=== PATIENT | female | born 1960 | race Caucasian/White ===

== ENCOUNTER 2016-09-19 08:41 | Inpatient (IN) | payer BC, OTHER ==
[2016-08-10 11:32] VITALS: BMI 47.0
--- NOTE | 2016-08-10 12:04 | PAT Medication Instructions ---
Service Date August 10, 2016. Current Home Medication List Bupropion (Wellbutrin Sr), 150 MG PO BID Citalopram Hydrobromide (Citalopram Hydrobromide), 1 TAB PO QAM Furosemide (Lasix), 40 MG PO QAM Lisinopril (Zestril), 40 MG PO QAM Lorazepam (Ativan), 0.5 MG PO HS Omeprazole (Prilosec), 20 MG PO QAM Warfarin Sod (Jantoven), 6 MG PO M,T,W,FRI,SAT Warfarin Sod (Jantoven), 3 MG PO THUR AND SUN [melox/ayesha/lido], for ARTHRITIS LEFT FOOT Medication Instructions For Your Scheduled Surgery - Hold the following medications per Coumadin clinic instructions: Warfarin Sod (Jantoven), 6 MG PO M,T,W,FRI,SAT Warfarin Sod (Jantoven), 3 MG PO THUR AND SUN per pt, to bridge with Lovenox - Hold the following medications 24 hours prior to surgery: [melox/ayesha/lido], for ARTHRITIS LEFT FOOT - Hold the following medications the morning of surgery: Furosemide (Lasix), 40 MG PO QAM Lisinopril (Zestril), 40 MG PO QAM - Take the following medications the morning of surgery with a sip of water OTHERWISE NOTHING TO EAT OR DRINK AFTER MIDNIGHT: Omeprazole (Prilosec), 20 MG PO QAM Bupropion (Wellbutrin Sr), 150 MG PO BID Citalopram Hydrobromide (Citalopram Hydrobromide), 1 TAB PO QAM - Take the following medications as scheduled the night before surgery: Lorazepam (Ativan), 0.5 MG PO HS Bupropion (Wellbutrin Sr), 150 MG PO BID If you have any questions please call us at [phone] or [phone] or [phone]
--- NOTE | 2016-08-10 12:48 | DIAGNOSTIC IMAGING REPORT ---
CHEST 2 VIEWS ROUTINE CLINICAL HISTORY: Preoperative evaluation. COMPARISON STUDY: No previous studies for comparison. FINDINGS: A gastric lap band is noted. Left basilar opacity suggests atelectasis. There is no evidence of pulmonary edema. Cardiac size is at the upper limits of normal. Pulmonary vascularity is normal. IMPRESSION: 1. No acute cardiopulmonary findings. 2. Top normal cardiac size. 3. Left basilar opacity suggestive of atelectasis. Electronically signed by: Pola Hare M.D. 08/10/2016 12:47 PM Dictated Date/Time: 08/10/2016 12:42 PM
[2016-08-10 13:30] LABS: BUN/CREATININE RATIO 19.7 (10-20); CALCIUM 8.7 mg/dl (8.5-10.1); POTASSIUM 4.2 mmol/L (3.5-5.1)
[2016-08-10 13:31] LABS: BASO % 0.3 %; BASO ABS # 0.02 K/uL (0-0.2); COMPLETE YES; EOS % 2.9 %; HEMATOCRIT 39.2 % (37-47); IG% 0.3 %; LYMPH % 24.5 %; LYMPH ABS # 1.51 K/uL (1.2-3.4); MEAN CELL VOLUME 86.2 fL (80-100); MEAN CORPUSCULAR HEMOGLOBIN 28.1 pg (25-34); MEAN CORPUSCULAR HGB CONC 32.7 g/dl (32-36); MEAN PLATELET VOLUME 9.8 fL (7.4-10.4); MONO % 6.3 %; NEUT % 65.7 %; PLATELET COUNT 285 K/uL (130-400); RED BLOOD COUNT 4.55 M/uL (4.2-5.4); WHITE BLOOD COUNT 6.17 K/uL (4.8-10.8)
[2016-08-10 14:07] LABS: INR 2.4 (0.9-1.1); PARTIAL THROMBOPLASTIN RATIO 1.9; PROTHROMBIN TIME (PATIENT) 26.9 SECONDS (9.0-12.0)
[2016-08-10 14:08] LABS: URINE APPEARANCE CLEAR (CLEAR); URINE BILIRUBIN NEG (NEG); URINE COLOR DK YELLOW; URINE EPITHELIAL CELL AUTO >30 /lpf (0-5); URINE NITRITE NEG (NEG); URINE SPECIFIC GRAVITY 1.024 (1.000-1.030); UROBILINOGEN NEG (NEG); ZZUR CULT IF INDIC CLEAN CATCH YES
[2016-08-10 14:14] LABS: MANUAL MICROSCOPIC REQUIRED? NO; REVIEW REQ? NO
[2016-08-10 14:33] LABS: ESTIMATED AVERAGE GLUCOSE 111 mg/dl; HA1C FLAG Normal (Normal)
--- NOTE | 2016-09-18 20:22 | HISTORY & PHYSICAL EXAMINATION ---
DATE OF ADMISSION: 09/19/2016 CHIEF COMPLAINT: Chronic left knee pain. HISTORY OF PRESENT ILLNESS: This is a 56-year-old female patient of Dr. Hamlin who is complaining of chronic left knee pain, longstanding, now progressively getting worse. The patient has been diagnosed with end-stage osteoarthritis per clinical and radiographic exams. The patient has failed conservative treatment including, physical therapy, anti-inflammatories, intra-articular injections and the use of a cane, walker and Hieu wrap. The patient has increased pain with weightbearing activities and her pain does interfere with her activities of daily living. PAST MEDICAL HISTORY: Hypertension, pulmonary embolism, sleep apnea with the use of CPAP, anxiety, carpal tunnel syndrome, obesity. SOCIAL HISTORY: Nonsmoker, nondrinker. PAST SURGICAL HISTORY: Shoulder surgery and lap band abdominal surgery. REVIEW OF SYSTEMS: The patient complains of chronic left knee pain, otherwise denies any shortness of breath, chest pain, nausea, vomiting or joint complaints. FAMILY HISTORY: Noncontributory. MEDICATIONS: Lisinopril 40 mg daily, lorazepam 0.5 mg b.i.d. p.r.n., omeprazole 20 mg daily, bupropion 150 mg b.i.d., Celexa 20 mg daily, Coumadin 6 mg as directed by Coumadin clinic, Lasix 40 mg daily, transdermal pain base to affected area as needed daily. ALLERGIES: No known drug allergies. PHYSICAL EXAMINATION: GENERAL: Well-developed, well-nourished 56-year-old female patient. She is in no acute distress. She is alert and oriented x3 and pleasant. HEENT: Normocephalic, atraumatic. Extraocular motions are intact. Pupils are equal and reactive to light. HEART: Regular rate and rhythm, no murmurs appreciated. LUNGS: Clear. ABDOMEN: Soft, nontender, bowel sounds present. EXTREMITIES: Left knee reveals medial joint line tenderness with limited range of motion of 0-120 degrees. She has a mild effusion. She has a varus deformity, 5/5 strength. NEUROLOGIC: Neurovascularly, she is intact in her left lower extremity. DIAGNOSES: Left knee end-stage osteoarthritis with a history of hypertension, pulmonary embolism, sleep apnea with the use of CPAP, anxiety, carpal tunnel syndrome, obesity. PLAN: The patient was advised of her diagnosis. Indications, risks, benefits, and postop course have all been reviewed. The patient wishes to proceed with left total knee arthroplasty. Necessary consent forms, preoperative testing and clearances will be obtained.
[~2016-09-19] VITALS: Ht 160 cm; Wt 122.1 kg
[2016-09-19] VITALS (8 sets, daily range): BP systolic 106–154; BP diastolic 66–81; PULSE 74–83; TEMP 36.5–37.4; O2SAT 94–99; Ht 160 cm; Wt 122.1 kg
[~2016-09-19 08:41] MED LIST: ACETAMINOPHEN 500 MG TAB PO SCH; BUPIVACAINE 0.5 % 5 MG/1 ML PF 10ML VIAL ONE; BUPR-79 PO; CEFAZOLIN 3000 MG/65 ML D5W 65 ML IV SCH; CITA20TA4 PO; DEXAMETHASONE 4 MG TAB PO SCH; FAMOTIDINE 20 MG TAB PO SCH; FRS/40 PO; GABA; GABAPENTIN 300 MG CAP PO SCH; LACTATED RINGER'S 1000ML 1,000 ML IV SCH; LACTATED RINGER'S 1000ML IV SCH; LACTATED RINGER'S 500 ML IV SCH; LIDO; LISI40TA PO; LORA-741 PO; MELOX; METOCLOPRAMIDE HCL 10 MG TAB PO SCH; PRLSR20 PO; ROPIVACAINE 0.5% 5 MG/ML 30 ML VIAL ONE; ROPIVACAINE 5MG/ML 30 ML 150 MG, BUPIVACAINE/EPINEPHR 0.5% MPF 30 ML, KETOROLAC TROMETH... INFIL SCH; WARF3TAB6 PO; WARF6TAB5 PO
[2016-09-19] MEDS ORDERED: PROPOFOL IV EMULSION 10 MG/ML 20 ML VIAL IV ONE (08:43)
[2016-09-19] MEDS ORDERED: LIDOCAINE HCL 2% 2 ML VIAL (20MG/ML) ONE (08:43)
[2016-09-19] MEDS ORDERED: MIDAZOLAM HCL 1 MG/ML 2ML VIAL ONE ×2 (08:44→08:45)
[2016-09-19] MEDS ORDERED: ENOX60IN SQ (09:06)
--- NOTE | 2016-09-19 09:38 | History & Physical Bridge Note ---
H&P Re-Evaluation Bridge Note: I have examined the patient, reviewed the History & Physical and in the interval since the performance of the History & Physical I have noted the following changes of clinical significance: No changes noted
[2016-09-19] MEDS ORDERED: BACITRACIN 50000 UNIT VIAL ONE (09:54)
[2016-09-19] MEDS ORDERED: POVIDONE-IODINE OP SOLN 30 ML BTL ONE (09:54)
[2016-09-19] MEDS ORDERED: ORTHO JOINT ANESTHETIC ONE (09:54)
[2016-09-19 09:57] LABS: INR 0.9 (0.9-1.1); PARTIAL THROMBOPLASTIN RATIO 1.2
[2016-09-19] MEDS ORDERED: PHENYLEPHRINE HCL INJ 10 MG/ML VIAL ONE (11:00)
[2016-09-19] MEDS ORDERED: ONDANSETRON INJ 2 MG/ML 2 ML VIAL IV PRN ×2 (11:15→13:15)
[2016-09-19] MEDS ORDERED: EpHEDrine SULFATE INJ 50 MG/ML AMP IV PRN (11:15)
[2016-09-19] MEDS ORDERED: HYDROmorphone INJ 2 MG/ML SYR/VIAL IV PRN (11:15)
[2016-09-19] MEDS ORDERED: ATROPINE SULFATE 0.1 MG/ML 5ML SYR IV PRN (11:15)
[2016-09-19] MEDS ORDERED: PHENYLEPHRINE 100MCG/ML 5ML SYR IV PRN (11:15)
--- NOTE | 2016-09-19 12:41 | [facility] Operative Report ---
Operative Report Operative Date Sep 19, 2016. Pre-Operative Diagnosis Left Knee Degenerative Joint Disease,morbid obesity bmi 47.7 Post-Operative Diagnosis same Procedure(s) Performed Left total knee replacement Surgeon Dr. Andersen Baggage Security Checker Surgeon(s) Deuce Dumont PA-C Estimated Blood Loss 5 ML Findings tricompartmental djd oa varus grade 4 medial Specimens A. Left Knee Bone and Tissue Drains 2 hemovac Anesthesia spinal regioanal and orthomix Complication(s) None Disposition Recovery Room / PACU Indications end stage bilateral knee djd oa left > right I attest to the content of the Intraoperative Record and any orders documented therein. Any exceptions are noted below.
[2016-09-19] MEDS ORDERED: SOD PHOSPHATE/SOD BIPHOSPHATE ENEMA 132 ML BTL PR PRN (13:15)
[2016-09-19] MEDS ORDERED: METOCLOPRAMIDE HCL INJ 5 MG/ML 2 ML VIAL IV PRN (13:15)
[2016-09-19] MEDS ORDERED: BISACODYL 10 MG SUPP PR PRN (13:15)
[2016-09-19] MEDS ORDERED: ZOLPIDEM TARTRATE 5 MG TAB PO PRN (13:15)
[2016-09-19] MEDS ORDERED: MAGNESIUM HYDROXIDE SUSP 30 ML UDC PO PRN (13:15)
[2016-09-19] MEDS ORDERED: MoRPHine SULFATE 2 MG/ML CARP IV PRN (13:15)
[2016-09-19] MEDS ORDERED: TRAMADOL HCL 50 MG TAB PO PRN (13:15)
--- NOTE | 2016-09-19 13:52 | Anesthesiology Progress Note ---
Anesthesia Post Op Note Date & Time Sep 19, 2016 at 13:52 Vital Signs Pain Intensity: 0 Vital Signs Past 12 Hours Date Time Temp Pulse Resp B/P (MAP) Pulse Ox O2 Delivery O2 Flow Rate FiO2 09/19/16 13:29 75 17 09/19/16 13:29 77 17 94 09/19/16 13:29 77 17 94 09/19/16 13:29 75 17 09/19/16 13:26 115/64 09/19/16 13:26 115/64 09/19/16 13:24 77 19 95 09/19/16 13:24 76 19 09/19/16 13:24 76 19 09/19/16 13:24 77 19 95 09/19/16 13:21 130/66 09/19/16 13:21 130/66 09/19/16 13:19 78 20 09/19/16 13:19 79 20 93 09/19/16 13:19 79 20 93 09/19/16 13:19 78 20 09/19/16 13:16 120/70 09/19/16 13:16 120/70 09/19/16 13:14 79 22 09/19/16 13:14 79 22 97 09/19/16 13:14 79 22 97 09/19/16 13:14 79 22 09/19/16 13:11 126/71 09/19/16 13:11 126/71 09/19/16 13:10 123/63 09/19/16 13:10 123/63 09/19/16 13:09 83 20 09/19/16 13:09 83 20 09/19/16 13:09 36.4 20 18 123/63 97 Room Air 09/19/16 13:09 83 20 97 09/19/16 13:09 83 20 97 09/19/16 09:08 36.7 83 20 130/66 94 Room Air Notes Mental Status: alert / awake / arousable, participated in evaluation Pt Amnestic to Procedure: Yes Nausea / Vomiting: adequately controlled Pain: adequately controlled Airway Patency, RR, SpO2: stable & adequate BP & HR: stable & adequate Hydration State: stable & adequate Anesthetic Complications: no major complications apparent
--- NOTE | 2016-09-19 13:59 | DIAGNOSTIC IMAGING REPORT ---
LEFT KNEE 2 VIEWS History: Left total knee arthroplasty. Degenerative arthritis. Postop. FINDINGS: The patient is status post a left total knee arthroplasty. The hardware is intact. No fracture or dislocation. Skin mikey and surgical drains are in place. IMPRESSION: Left total knee arthroplasty. No evidence for hardware complication. Electronically signed by: Raúl Lambert M.D. 09/19/2016 1:58 PM Dictated Date/Time: 09/19/2016 1:57 PM
[2016-09-19] MEDS ORDERED: MoRPHine SULFATE 4 MG/ML 1 ML CARP\\VIAL IV PRN (15:00)
[2016-09-19] MEDS ORDERED: WARFARIN SOD 6 MG TAB PO SCH (16:00)
[2016-09-19] MEDS: D5W AND 1/2NSS + 20MEQ KCL 1,000 ML IV SCH (16:17)
[2016-09-19] MEDS: ACETAMINOPHEN 500 MG TAB PO SCH ×2 (16:21→21:23)
--- NOTE | 2016-09-19 16:48 | INTERNAL MEDICINE CONSULTATION ---
DATE OF CONSULTATION: 09/19/2016 CHIEF COMPLAINT: Status post left total knee arthroplasty. HISTORY OF PRESENT ILLNESS: This is a 56-year-old female with past medical history significant for obesity, HAQUE, hypertension, DVT, pulmonary embolism, depression, generalized anxiety disorder status post left total knee arthroplasty tolerated the procedure okay. Denies any chest pain, no shortness of breath, no cough, no headaches, no blurred vision, no nausea, no abdominal pain, feeling some hot but no cold, moving her extremities. Currently, resting comfortably. ALLERGIES: No known drug allergies. PAST MEDICAL HISTORY: As mentioned above. PAST SURGICAL HISTORY: Knee arthroscopy and debridement right side, laparoscopic gastric banding, and also bypass, shoulder arthroscopy and debridement, shoulder tenomyotomy. MEDICATIONS: The patient is on Lovenox bridging, lisinopril 40 mg daily, bupropion extended release 150 mg p.o. b.i.d., Coumadin as directed, Ativan 0.5 mg p.o. b.i.d. p.r.n., Celexa 20 mg p.o. daily, Prilosec 20 mg p.o. daily, Lasix 40 mg p.o. daily. FAMILY HISTORY: Significant for father had rheumatoid arthritis, diabetes, CHF, NC, hypertension and obesity. Mother has lymphedema, mental depression, lung disorder and lung cancer. SOCIAL HISTORY: Never smoked. Alcohol occasional. No drug use. Single. REVIEW OF SYSTEMS: As per HPI, rest of review of systems negative. PHYSICAL EXAMINATION: GENERAL: The patient is obese, not in distress. VITAL SIGNS: Temperature 36.6, pulse 79, respiratory rate 18, blood pressure 146/78, oxygen 97% on 2 liters. HEENT: No pallor. NECK: No JVD, no neck masses. CARDIOVASCULAR: S1, S2 heard, regular rate and rhythm, no murmur, no gallop. RESPIRATORY SYSTEM: Normal AP diameter. No accessory muscle use. No wheezing, no crackles. ABDOMEN: Soft, bowel sounds present. Nontender. No distention. CENTRAL NERVOUS SYSTEM: Nonfocal. EXTREMITIES: Status post left total knee arthroplasty in dressing, moves extremities. LABS: Unavailable. ASSESSMENT AND PLAN: This is a 56-year-old female status post left total knee arthroplasty. 1. Total knee arthroplasty. Further management as per orthopedics. Pain control, PT, OT as per orthopedics. 2. History of deep venous thrombosis and pulmonary embolism on Coumadin at home, which are held and on Lovenox prior to surgery, currently restarting Coumadin tonight. Follow PT/INR. 3. History of hypertension. Continue lisinopril. Monitor blood pressure. 4. History of depression. Continue Wellbutrin and Celexa. 5. History of anxiety. Continue Ativan p.r.n. 6. Gastroesophageal reflux disease. Proton pump inhibitor 7. Deep venous thrombosis prophylaxis and disposition as per orthopedics. MTDD
[2016-09-19] MEDS: CEFAZOLIN IV 2,000 MG in DEXTROSE 5% 50ML 50 ML IV SCH (18:47)
--- NOTE | 2016-09-19 19:51 | OPERATIVE REPORT ---
DATE OF OPERATION: 09/19/2016 INDICATION FOR PROCEDURE: The patient is a 56-year-old female, who presents with chronic bilateral knee pain, left greater than right. She also has morbid obesity, BMI of 47.7. She has tried all conservative management including, failed injections, therapy, bracing. Radiographs demonstrate that she has [id number] in the medial compartment in both of her knees on flexion and weightbearing films, left knee is worse than her right. She has tricompartmental DJD findings of the left knee. PREOPERATIVE DIAGNOSIS: End-stage osteoarthritis of the left knee, morbid obesity, BMI 47.7. POSTOPERATIVE DIAGNOSIS: Same. Morbid obesity, BMI 47.7. PROCEDURE: Left total knee arthroplasty, and increased difficulty due to morbid obesity, BMI 47.7. SURGEON: Dr. Andersen. QUALITY SYSTEMS TECHNICIAN: MIRANDA Russo. ANESTHESIA: Spinal sedation, regional block and Orthomix. OPERATIVE PROCEDURE: The patient was taken to the operating room and anesthetized under anesthesia as dictated. She was placed supine on the operating room table. She had a very obese upper thigh. Placed pneumatic tourniquet high about the left upper thigh. The left lower extremity was prepped and draped in sterile fashion. Exam demonstrated that she did not have any significant pseudolaxity in the medial knee, just had a tight varus knee, limited range of motion of her knee and an obese leg. Her left lower extremity was prepped and draped with ChloraPrep. The leg was elevated, exsanguinated with Esmarch bandage. Pneumatic tourniquet was raised to 350 mmHg. Anterior incision made across the left knee. She had a deep layer of fat divided down the fascia. She had a little bit of edema fluid noted at that time. She has subcutaneous flaps elevated. Incision was made through medial retinaculum and extended up to the mid-third of the quadriceps tendon and extended down to the medial tibial tubercle. Intraarticular findings demonstrate she had tricompartmental DJD, and tricompartmental osteophytes and bone on bone medial compartment, which was the worst area of arthritis. She had a varus knee. The [employer] 2.0, total knee arthroplasty system was used with [employer] MRI templating with custom cutting blocks. The knee was exposed by excising the menisci, the cruciate ligaments doing more releases around the medial tibial plateau including posteromedial capsular release of the proximal tibial plateau. And did a subperiosteal release of the superficial MCL on the proximal tibia as well. We did not do any significant releases laterally. The infrapatellar fat pad was resected and some of the fat over the anterior femur was resected for placement of the component in that area. We released the lateral synovial bands. The femur was exposed with retractors. Custom femoral cutting block was pinned in position. The distal femoral cut was made. Then we went ahead and extended the knee, did a subperiosteal peel lateral release around the patella and did a freehand cut technique and reproduced width using a 35 patellar component. The drill holes were made for the patella and the excess lateral facet was beveled off to prevent any impingement. Then the femur was re-exposed and the 5 in 1 cutting block was used for a size 6 femur. The anterior, posterior and chamfer cuts were made. Then the tibia was subluxed, but we downsized this to 4 size after removal of the osteophytes. The custom cutting block was first placed and the proximal tibial cut was made with the oscillating saw. After the osteophytes were resected, we used the lamina material handling technician to help balance the ligaments, but she was still tight on the medial side. The tibia was then re-exposed and the 4 tibial trial was externally rotated in line with the tibial tubercle. The punch for the stem was used. And then the 6 femoral trial was inserted, centered and the notch cutting devices were used, a collet was placed and I there still was some ligamentous inbalance. We used the lamina material handling technician and pie crusted the MCL and this balanced the ligaments satisfactorily. Then, we used a 10 insert and we had good balanced ligaments through full range of motion, and the patella tracked centrally. The trials were removed. The anesthetic cocktail was injected per protocol. The knee was copiously irrigated with pulsatile lavage antibiotic solution and bacitracin. Then, the final components were cemented with Simplex G cement. Final components were a 6 Oxinium posterior stabilized [employer] 2.0, size 6, left femoral component and then the 4 tibial baseplate and then the 10 mm posterior stabilized high flex tibial polyethylene and a 35 patella. All excess cement was cleared. Betadine soak was used per protocol with the knee held in full extension while the cement cured. The knee was then copiously irrigated with antibiotic solution and bacitracin. Two drains were brought out laterally. The quadriceps tendon and medial retinaculum were closed with interrupted [id number] #1 Vicryl sutures. The knee was taken through range of motion and the repair was secure through 0 through 130 degrees range of motion. The subcutaneous tissues were closed in layers with interrupted 2-0 Vicryl, skin closed with mikey. Sterile dressings were applied, and the patient also had application of a superficial wound VAC. The patient tolerated the procedure well. MIRANDA Russo was my assistant inventory manager. He functioned as my assistant inventory manager for the entire procedure. He assisted in patient positioning, prepping, draping, soft tissue retraction, leg positioning, instrument management during the reconstruction, performed the fascial, subcutaneous and skin closure and applied a superficial wound VAC and will participate in the postoperative care of the patient. There is also increased level of difficulty throughout the procedure due to her morbid obesity, BMI 47.7. I attest to the content of the Intraoperative Record and any orders documented therein. Any exceptions are noted below. [place]
[2016-09-19] MEDS: DOCUSATE SODIUM 100 MG CAP PO SCH (21:21)
[2016-09-19] MEDS: BuPROPion SR 150 MG TABCR PO SCH (21:21)
[2016-09-19] MEDS: OXYCODONE HCL IR 5 MG TAB (IMMEDIATE RELEASE) PO PRN (21:22)
[2016-09-19] MEDS: OXYCODONE HCL 10 MG TABCR (OXYCONTIN) PO SCH (21:22)
[2016-09-19] MEDS: LORAZEPAM 0.5 MG TAB PO SCH (21:22)
[2016-09-20] VITALS (8 sets, daily range): BP systolic 119–149; BP diastolic 72–86; PULSE 68–87; TEMP 36.5–37; O2SAT 97–100
[2016-09-20] MEDS: D5W AND 1/2NSS + 20MEQ KCL 1,000 ML IV SCH ×2 (01:59→11:55)
[2016-09-20] MEDS: CEFAZOLIN IV 2,000 MG in DEXTROSE 5% 50ML 50 ML IV SCH (02:31)
[2016-09-20] MEDS: ACETAMINOPHEN 500 MG TAB PO SCH ×3 (06:08→22:15)
[2016-09-20 07:45] LABS: HEMATOCRIT 30.2 % (37-47); MEAN CELL VOLUME 86.8 fL (80-100); MEAN CORPUSCULAR HEMOGLOBIN 28.2 pg (25-34); MEAN CORPUSCULAR HGB CONC 32.5 g/dl (32-36); MEAN PLATELET VOLUME 9.6 fL (7.4-10.4); PLATELET COUNT 218 K/uL (130-400); RED BLOOD COUNT 3.48 M/uL (4.2-5.4); WHITE BLOOD COUNT 11.14 K/uL (4.8-10.8)
[2016-09-20 07:53] LABS: PROTHROMBIN TIME (PATIENT) 11.1 SECONDS (9.0-12.0)
[2016-09-20 08:22] LABS: BUN/CREATININE RATIO 17.2 (10-20); CREATININE 0.94 mg/dl (0.60-1.20); POTASSIUM 4.2 mmol/L (3.5-5.1)
[2016-09-20 08:26] LABS: CALCIUM 7.9 mg/dl (8.5-10.1)
--- NOTE | 2016-09-20 08:39 | Orthopedic Progress Note ---
Orthopedic Progress Note Date of Service Sep 20, 2016. Subjective Post OP Day: 1 Reports: feeling well, pain controlled w PO medications, Denies: complaints, chest pain, SOB, nausea / vomiting, light headedness, calf pain Objective calves soft nontender, N/V intact, capillary refill less than 2 sec., dressing C /D/I, A&O x3, toes mobile Date Time Temp Pulse Resp B/P (MAP) Pulse Ox O2 Delivery O2 Flow Rate FiO2 09/20/16 07:57 97 Room Air 09/20/16 07:45 36.6 68 16 132/78 (96) 97 Room Air 09/20/16 03:30 36.5 73 16 119/72 (88) 98 CPAP 09/19/16 23:28 36.5 74 16 106/66 (79) 99 Room Air 09/19/16 20:30 Room Air 09/19/16 19:50 37.1 75 18 120/71 (87) 97 Room Air 09/19/16 18:00 36.9 78 18 129/80 (96) 96 Nasal Cannula 2.0 09/19/16 17:00 36.8 82 18 154/81 (105) 97 Nasal Cannula 2.0 09/19/16 16:20 Nasal Cannula 2.0 09/19/16 16:00 36.8 81 18 137/81 (99) 98 Nasal Cannula 2.0 09/19/16 15:44 36.6 79 18 146/78 (100) 97 Nasal Cannula 2.0 09/19/16 15:00 37.4 76 16 121/71 Nasal Cannula 2.0 09/19/16 15:00 97 Nasal Cannula 2.0 09/19/16 15:00 37.4 76 16 121/71 (88) 97 Nasal Cannula 2.0 09/19/16 14:37 81 21 09/19/16 14:37 82 21 97 09/19/16 14:36 114/69 09/19/16 14:32 80 19 09/19/16 14:32 80 19 97 09/19/16 14:31 108/66 09/19/16 14:27 82 21 96 09/19/16 14:27 82 21 09/19/16 14:26 113/64 09/19/16 14:22 83 21 96 09/19/16 14:22 82 21 6/14/17 14:21 107/69 6/14/17 14:17 81 17 6/14/17 14:17 81 17 97 14/17 14:16 108/65 /14/17 14:12 80 19 96 /14/17 14:12 80 19 6/14/17 14:11 105/63 14/17 14:07 83 21 95 14/17 14:07 83 21 14/17 14:06 120/74 14/17 14:02 79 18 96 14/17 14:02 79 18 /14/17 14:01 123/67 /14/17 13:58 36.5 81 20 124/66 (83) 96 Nasal Cannula 2 14/17 13:57 78 19 /14/17 13:57 78 19 96 14/17 13:56 124/66 14/17 13:52 80 20 96 6/14/17 13:52 80 20 /14/17 13:51 119/64 14/17 13:50 78 17 97 /14/17 13:50 79 17 /14/17 13:46 115/64 6/14/17 13:45 76 19 6/14/17 13:45 76 19 97 6/14/17 13:41 120/63 /14/17 13:40 76 20 6/14/17 13:40 77 20 94 6/14/17 13:36 130/67 /14/17 13:35 75 18 98 6/14/17 13:35 77 18 6/14/17 13:31 113/68 6/14/17 13:30 75 19 96 6/14/17 13:30 76 19 6/14/17 13:29 75 17 6/14/17 13:29 77 17 94 6/14/17 13:29 77 17 94 6/14/17 13:29 75 17 6/14/17 13:26 115/64 6/14/17 13:26 115/64 6/14/17 13:24 77 19 95 6/14/17 13:24 76 19 6/14/17 13:24 76 19 6/14/17 13:24 77 19 95 6/14/17 13:21 130/66 6/14/17 13:21 130/66 6/14/17 13:19 78 20 09/19/16 13:19 79 20 93 09/19/16 13:19 79 20 93 09/19/16 13:19 78 20 09/19/16 13:16 120/70 09/19/16 13:16 120/70 09/19/16 13:14 79 22 09/19/16 13:14 79 22 97 09/19/16 13:14 79 22 97 09/19/16 13:14 79 22 09/19/16 13:11 126/71 09/19/16 13:11 126/71 09/19/16 13:10 123/63 09/19/16 13:10 123/63 09/19/16 13:09 83 20 09/19/16 13:09 83 20 09/19/16 13:09 36.4 20 18 123/63 97 Room Air 09/19/16 13:09 83 20 97 09/19/16 13:09 83 20 97 09/19/16 09:08 36.7 83 20 130/66 94 Room Air Laboratory Results 24 Hours: Test 09/19/16 09:17 09/20/16 07:22 Prothromb Time International Ratio 0.9 1.0 Prothrombin Time 10.0 SECONDS 11.1 SECONDS Hematocrit 30.2 % Hemoglobin 9.8 g/dL Assessment & Plan Assessment: POD #1, Left TKA Plan: PT/ OT DVT proph- Coumadin w Lovenox bridging D/C plans- Home w OPPT As per medicine Inhouse Planning Pain Management: Oxycontin, Morphine, PO Tylenol, Oxy IR DVT Prophylaxis: TEDs, SCDs, Coumadin, Lovenox Discharge Planning Discharge Planning: home with oppt Pain Management: Oxycontin, PO Tylenol, Oxy IR DVT Prophylaxis: TEDs, Coumadin, Lovenox Therapy: Physical Therapy, Occupational Therapy
[2016-09-20] MEDS: OXYCODONE HCL 10 MG TABCR (OXYCONTIN) PO SCH ×2 (08:55→20:16)
[2016-09-20] MEDS: LISINOPRIL 40 MG TAB PO SCH (08:55)
[2016-09-20] MEDS: CITALOPRAM 20 MG TAB PO SCH (08:56)
[2016-09-20] MEDS: FUROSEMIDE 40 MG TAB PO SCH (08:56)
[2016-09-20] MEDS: DOCUSATE SODIUM 100 MG CAP PO SCH ×2 (08:56→20:16)
[2016-09-20] MEDS: MULTIVITAMIN TAB PO SCH (08:56)
[2016-09-20] MEDS: PANTOprazole SOD 40 MG TAB PO SCH (08:56)
[2016-09-20] MEDS: BuPROPion SR 150 MG TABCR PO SCH ×2 (08:56→20:16)
[2016-09-20] MEDS: OXYCODONE HCL IR 5 MG TAB (IMMEDIATE RELEASE) PO PRN ×3 (11:59→23:43)
[2016-09-20] MEDS ORDERED: ENOXAPARIN 40 MG/0.4 ML SYR SQ SCH ×2 (12:00)
[2016-09-20] MEDS ORDERED: WARFARIN SOD 3 MG TAB PO SCH (16:00)
--- NOTE | 2016-09-20 16:45 | Progress Note ---
Medicine Progress Note Date & Time of Visit: Sep 20, 2016 at 14:46. Subjective 56-year-old female status post left total knee arthroplasty -post-op pain is controlled -denies nausea, tolerating PO -ambulatory -passing gas Objective Last 8 Hrs Date Time Temp Pulse Resp B/P (MAP) Pulse Ox O2 Delivery O2 Flow Rate FiO2 09/20/16 12:57 81 100 09/20/16 11:55 36.6 71 16 136/86 (103) 100 Room Air 09/20/16 07:57 97 Room Air 09/20/16 07:45 36.6 68 16 132/78 (96) 97 Room Air Physical Exam: GEN: WNWD, in no acute distress, alert and appropriate HEENT: NC/AT, pupils equal and round bilaterally, normal sclerae/conjunctivae, MMM CARDIO: reg rate, S1/2 heard without m/g/r, no edema LUNGS: CTA bilaterally, no crackles, rales or wheezes, good diaphragmatic excursion ABD: soft, non-tender, non-distended, no rebound or guarding, +BS EXTREMITY: RP and DP palpable 2+ bilat, extremities are warm and well-perfused, L knee wrapped with GIOVANY and covered with ice layla, drain in place. NEURO: CN 2-12 grossly intact, sensation intact throughout including in L foot MUSC: able to wiggle toes on L foot, aside from LLE she moves all extremities equally SKIN: warm and dry and wound as above. Laboratory Results: 09/20/16 07:22 09/20/16 07:22 Test 08/10/16 00:00 08/10/16 12:14 09/19/16 09:17 09/20/16 07:22 Urine Color DK YELLOW Urine Appearance CLEAR (CLEAR) Urine pH 6.0 (4.5-7.5) Urine Specific [place] 1.024 (1.000-1.030) Urine Protein NEG (NEG) Urine Glucose (UA) NEG (NEG) Urine Ketones TRACE (NEG) Urine Occult Blood TRACE (NEG) Urine Nitrite NEG (NEG) Urine Bilirubin NEG (NEG) Urine Urobilinogen NEG (NEG) Urine Leukocyte Esterase MODERATE (NEG) Urine WBC (Auto) 10-30 /hpf (0-5) Urine RBC (Auto) 10-30 /hpf (0-4) Urine Hyaline Casts (Auto) 0 /lpf (0-5) Urine Epithelial Cells (Auto) >30 /lpf (0-5) Urine Bacteria (Auto) NEG (NEG) Immature Granulocyte % (Auto) 0.3 % White Blood Count 6.17 K/uL (4.8-10.8) Red Blood Count 4.55 M/uL (4.2-5.4) 3.48 M/uL (4.2-5.4) Hemoglobin 12.8 g/dL (12.0-16.0) Hematocrit 39.2 % (37-47) Mean Corpuscular Volume 86.2 fL (80-100) 86.8 fL (80-100) Mean Corpuscular Hemoglobin 28.1 pg (25-34) 28.2 pg (25-34) Mean Corpuscular Hemoglobin Concent 32.7 g/dl (32-36) 32.5 g/dl (32-36) Platelet Count 285 K/uL (130-400) Mean Platelet Volume 9.8 fL (7.4-10.4) 9.6 fL (7.4-10.4) Neutrophils (%) (Auto) 65.7 % Lymphocytes (%) (Auto) 24.5 % Monocytes (%) (Auto) 6.3 % Eosinophils (%) (Auto) 2.9 % Basophils (%) (Auto) 0.3 % Neutrophils # (Auto) 4.05 K/uL (1.4-6.5) Lymphocytes # (Auto) 1.51 K/uL (1.2-3.4) Monocytes # (Auto) 0.39 K/uL (0.11-0.59) Eosinophils # (Auto) 0.18 K/uL (0-0.5) Basophils # (Auto) 0.02 K/uL (0-0.2) Immature Granulocyte # (Auto) 0.02 K/uL (0.00-0.02) Estimated Average Glucose 111 mg/dl Hemoglobin A1c 5.5 % (4.5-5.6) Albumin 3.7 gm/dl (3.4-5.0) Activated Partial Thromboplast Time 31.1 SECONDS (21.0-31.0) Partial Thromboplastin Ratio 1.2 RDW Standard Deviation 45.8 fL (36.4-46.3) RDW Coefficient of Variation 14.6 % (11.5-14.5) Prothrombin Time 11.1 SECONDS (9.0-12.0) Prothromb Time International Ratio 1.0 (0.9-1.1) Anion Gap 6.0 mmol/L (3-11) Est Creatinine Clear Calc Drug Dose 83.7 ml/min Estimated GFR () 78.1 Estimated GFR (Non- 67.3 BUN/Creatinine Ratio 17.2 (10-20) Calcium Level 7.9 mg/dl (8.5-10.1) Date/Time Source Procedure Growth Status 08/10/16 00:00 Urine , Clean Catch Urine Culture - Final Lactobacillus Species Complete Last 24 Hours Test 09/20/16 07:22 White Blood Count 11.14 K/uL Red Blood Count 3.48 M/uL Hemoglobin 9.8 g/dL Hematocrit 30.2 % Mean Corpuscular Volume 86.8 fL Mean Corpuscular Hemoglobin 28.2 pg Mean Corpuscular Hemoglobin Concent 32.5 g/dl RDW Standard Deviation 45.8 fL RDW Coefficient of Variation 14.6 % Platelet Count 218 K/uL Mean Platelet Volume 9.6 fL Prothrombin Time 11.1 SECONDS Prothromb Time International Ratio 1.0 Sodium Level 141 mmol/L Potassium Level 4.2 mmol/L Chloride Level 107 mmol/L Carbon Dioxide Level 28 mmol/L Anion Gap 6.0 mmol/L Blood Urea Nitrogen 16 mg/dl Creatinine 0.94 mg/dl Est Creatinine Clear Calc Drug Dose 83.7 ml/min Estimated GFR () 78.1 Estimated GFR (Non- 67.3 BUN/Creatinine Ratio 17.2 Random Glucose 131 mg/dl Calcium Level 7.9 mg/dl Assessment & Plan 56-year-old female status post left total knee arthroplasty 1. Total knee arthroplasty, POD #1. Pain controlled post-op, tolerating PO and ambulating with PT. 2. History of deep venous thrombosis and pulmonary embolism in 2015 on Coumadin at home. She was bridged perioperatively. Per hospital protocol we gave a prophylactic dose today and will resume full dose Lovenox BID tomorrow. Daily INR 3. HTN-controlled, cont lisinopril 4. Depression-stable. Continue home doses of Wellbutrin and Celexa. 5. Anxiety-stable, Ativan PRN 6. GERD-cont PPI DVT prophy-Lovenox/Couamdin as above. FULL CODE Dispo-per Ortho, likely to home in am DO Edi Reyes Hospitalist Current Inpatient Medications: Current Inpatient Medications Medications (Trade) Dose Ordered Sig/Khadra Route Start Time Stop Time Status Last Admin Dose Admin Bupropion HCl (Wellbutrin-Sr Tab) 150 mg BID PO 09/19/16 21:00 10/19/16 20:59 09/20/16 08:56 150 MG Citalopram Hydrobromide (celeXA TAB) 20 mg QAM PO 09/20/16 09:00 10/20/16 08:59 09/20/16 08:56 20 MG Furosemide (Lasix Tab) 40 mg QAM PO 09/20/16 09:00 10/20/16 08:59 09/20/16 08:56 40 MG Lisinopril (Zestril Tab) 40 mg QAM PO 09/20/16 09:00 10/20/16 08:59 09/20/16 08:55 40 MG Lorazepam (Ativan Tab) 0.5 mg HS PO 09/19/16 21:00 10/19/16 20:59 09/19/16 21:22 0.5 MG Warfarin Sodium (Coumadin Tab) 3 mg SuTh@1600 PO 09/20/16 16:00 10/20/16 15:59 Warfarin Sodium (Coumadin Tab) 6 mg MoTuWeFrSa@1600 PO 09/19/16 16:00 10/19/16 15:59 09/19/16 16:47 6 MG Potassium Chloride/Dextrose/ Sod Cl 1,000 ml @ 100 mls/hr Q10H IV 09/19/16 15:30 09/20/16 15:29 09/20/16 11:55 100 MLS/HR Oxycodone HCl (Roxicodone Immediate Rel Tab) 1 TABLET FOR PAIN RATING... Q4H PRN PO 09/19/16 13:15 10/03/16 13:14 09/20/16 11:59 10 MG Oxycodone HCl (Oxycontin Tab) 10 mg Q12 PO 09/19/16 21:00 10/03/16 20:59 09/20/16 08:55 10 MG Morphine Sulfate (MoRPHine SULFATE INJ) 2 mg Q2H PRN IV 09/19/16 13:15 10/03/16 13:14 Acetaminophen (Tylenol Tab) 1,000 mg Q8 PO 09/19/16 16:00 10/19/16 15:59 09/20/16 13:52 1,000 MG Magnesium Hydroxide (Milk Of Magnesia Susp) 30 ml Q6H PRN PO 09/19/16 13:15 10/19/16 13:14 Bisacodyl (Dulcolax Supp) 10 mg DAILY PRN DC 09/19/16 13:15 10/19/16 13:14 Sodium Biphosphate/ Sodium Phosphate (Fleet Enema) 132 ml DAILY PRN DC 09/19/16 13:15 10/19/16 13:14 Docusate Sodium (coLACE CAP) 100 mg BID PO 09/19/16 21:00 10/19/16 20:59 09/20/16 08:56 100 MG Diphenhydramine HCl (Benadryl Cap) 25 mg Q8H PRN PO 09/19/16 13:15 10/19/16 13:14 Zolpidem Tartrate (Ambien Tab) 5 mg HSZ PRN PO 09/19/16 13:15 10/19/16 13:14 Multivitamins (Multivitamin Tab) 1 tab QAM PO 09/20/16 09:00 10/20/16 08:59 09/20/16 08:56 1 TAB Ondansetron HCl (Zofran Inj) 4 mg Q6H PRN IV 09/19/16 13:15 10/19/16 13:14 Metoclopramide HCl (Reglan Inj) 10 mg Q6H PRN IV 09/19/16 13:15 10/19/16 13:14 Pantoprazole Sodium (Protonix Tab) 40 mg QAM PO 09/20/16 09:00 10/20/16 08:59 09/20/16 08:56 40 MG Tramadol HCl (Ultram Tab) 1 tablet for pain rating... Q4H PRN PO 09/19/16 13:15 10/19/16 13:14 Morphine Sulfate (MoRPHine SULFATE INJ) 4 mg Q2H PRN IV 09/19/16 15:00 10/03/16 14:59 Enoxaparin Sodium (Lovenox Inj) 120 mg Q12H SQ 09/21/16 09:00 10/21/16 08:59
[2016-09-20] MEDS: LORAZEPAM 0.5 MG TAB PO SCH (20:15)
[2016-09-21] MEDS: ACETAMINOPHEN 500 MG TAB PO SCH ×2 (05:45→14:42)
[2016-09-21 07:15] VITALS: BP 125/69; PULSE 84; TEMP 36.8; O2SAT 99
[2016-09-21] MEDS: OXYCODONE HCL IR 5 MG TAB (IMMEDIATE RELEASE) PO PRN ×2 (07:29→13:09)
[2016-09-21 08:09] LABS: HEMATOCRIT 29.7 % (37-47); MEAN CELL VOLUME 87.6 fL (80-100); MEAN CORPUSCULAR HEMOGLOBIN 26.8 pg (25-34); MEAN CORPUSCULAR HGB CONC 30.6 g/dl (32-36); MEAN PLATELET VOLUME 9.9 fL (7.4-10.4); PLATELET COUNT 200 K/uL (130-400); RED BLOOD COUNT 3.39 M/uL (4.2-5.4); WHITE BLOOD COUNT 6.79 K/uL (4.8-10.8)
[2016-09-21 08:14] LABS: INR 1.1 (0.9-1.1)
[2016-09-21] MEDS ORDERED: CALCIUM CARBONATE 1250MG TAB PO ONE (08:30)
--- NOTE | 2016-09-21 08:35 | Consultant Recommendations ---
Blackener Recommendations Date of Service Sep 21, 2016. Blackener Recommendations Please take all medications as instructed on discharge per list. You will need to continue the Lovenox injections post-operatively in conjunction with Coumadin until your INR is 2-3. You will need a repeat INR check on Saturday, and adjustments per your Coumadin Clinic staff at that time. You will be provided with five days of Lovenox on discharge, however, if your INR is not >2 when that runs out, you may need a refill which can be provided by the Coumadin Clinic staff or your primary care physician (PCP). The discharge prescription has been electronically submitted to your pharmacy. Once the INR is at goal, the Lovenox injections may be stopped. Please continue all post-operative instructions given above. You have a follow-up appointment scheduled with Lindsay Carvalho PA-C ([facility]) on 09/26 @ 9:45. Please bring all paperwork from this hospitalization and arrive 10 minutes early. It was a pleasure taking care of you! Call if you have any questions or problems. You can reach a [facility] hospitalist on duty at [facility] 24 hours a day by calling [phone]. Take care of yourself. Osiris Lara, [facility] Hospitalist
[2016-09-21] MEDS: OXYCODONE HCL 10 MG TABCR (OXYCONTIN) PO SCH (08:36)
[2016-09-21] MEDS ORDERED: LVNIS120 SQ (08:37)
[2016-09-21] MEDS: MULTIVITAMIN TAB PO SCH (08:37)
[2016-09-21] MEDS: LISINOPRIL 40 MG TAB PO SCH (08:37)
[2016-09-21] MEDS: PANTOprazole SOD 40 MG TAB PO SCH (08:37)
[2016-09-21] MEDS: FUROSEMIDE 40 MG TAB PO SCH (08:38)
[2016-09-21] MEDS: CITALOPRAM 20 MG TAB PO SCH (08:38)
--- NOTE | 2016-09-21 08:40 | Orthopedic Progress Note ---
Orthopedic Progress Note Date of Service Sep 21, 2016. Subjective Post OP Day: 2 Reports: feeling well, pain controlled w PO medications, Denies: complaints, chest pain, SOB, nausea / vomiting, light headedness, calf pain Objective calves soft nontender, N/V intact, capillary refill less than 2 sec., dressing C /D/I, A&O x3, toes mobile wOUND VAC IN TACT. Date Time Temp Pulse Resp B/P (MAP) Pulse Ox O2 Delivery O2 Flow Rate FiO2 09/21/16 07:25 Room Air 09/21/16 07:15 36.8 84 16 125/69 (87) 99 Room Air 09/20/16 23:54 Room Air CPAP 09/20/16 23:26 37.0 87 16 149/74 (99) 98 CPAP 09/20/16 19:48 36.9 82 20 138/78 (98) 98 Room Air 09/20/16 16:30 Room Air 09/20/16 14:53 36.8 76 16 131/76 (94) 99 Room Air 09/20/16 12:57 81 100 09/20/16 11:55 36.6 71 16 136/86 (103) 100 Room Air Laboratory Results 24 Hours: Test 09/21/16 07:27 Hematocrit 29.7 % Hemoglobin 9.1 g/dL Prothromb Time International Ratio 1.1 Prothrombin Time 12.0 SECONDS Assessment & Plan Assessment: POD #2, Left TKA Plan: PT/ OT DVT proph- Coumadin w Lovenox bridging, FOLLOW W BLOOD WORK AND COUMADIN CLINIC SATURDAY D/C plans- Home w OPPT As per medicine Inhouse Planning Pain Management: Oxycontin, Morphine, PO Tylenol, Oxy IR DVT Prophylaxis: TEDs, SCDs, Coumadin, Lovenox Discharge Planning Discharge Planning: home with oppt Pain Management: Oxycontin, PO Tylenol, Oxy IR DVT Prophylaxis: TEDs, Coumadin, Lovenox Therapy: Physical Therapy, Occupational Therapy
[2016-09-21] MEDS ORDERED: ACET-24 PO (08:44)
[2016-09-21] MEDS ORDERED: OXYSR10 PO (08:44)
[2016-09-21] MEDS ORDERED: ONDA8TAB6 PO (08:44)
[2016-09-21] MEDS ORDERED: RXC5 PO (08:44)
--- NOTE | 2016-09-21 08:49 | Discharge Instructions ---
Discharge Instructions Date of Service Sep 21, 2016. Admission Reason for Admission: Left Knee Degenerative Joint Disease Discharge Discharge Diagnosis / Problem: LEFT TKA Discharge Goals Goal(s): Improve function Activity Recommendations Activity Limitations: as noted below . Instructions / Follow-Up Instructions / Follow-Up ACTIVITY RECOMMENDATIONS: SELF CARE INSTRUCTIONS AFTER TOTAL KNEE REPLACEMENT A. You may need to continue a physical therapy program after discharge from the hospital. There are several options available to you. Your doctor will assist you in selecting the best one for you. 1. An out-patient facility 2 to 3 times a week for therapy or home therapy. 2. Continue working on all exercises taught to you in the hospital. Your goals should be to increase bending of your knee to 90 degrees and beyond and to fully straighten your knee. B. You may progress at your own pace from walking with a walker or crutches to a cane; then to no assistive devices. C. Make walking a part of your daily routine. Be up as much as comfortable with rest periods throughout the day. Rest with leg elevation is very important. Use the ice wrap frequently for the first 3-4 weeks. D. There are no restrictions on activities. You may ride in a car, shop, participate in sales promotion officer and all social activities. E. Wear the long elastic stockings (VALERIA hose) 20 hours a day for 2 weeks after surgery. They can be removed several times a day for laundering and for a bath. F. You may shower, no tub baths until cleared by your doctor. SPECIAL CARE INSTRUCTIONS: VERY IMPORTANT TO READ AND REVIEW A. There are a few signs you need to watch for after you are home. Call [facility] if you notice any of the followin. Increased severe knee pain. Some pain is expected especially when you exercise. 2. Increased swelling in your leg or knee; pain or swelling of the calf muscle in either lower leg. 3. Any fluid drainage from the incision. 4. Shortness of breath or chest pain. B. Please call [facility] at if you have any concerns or questions about your operation or recovery. The doctor or his nurse will return your call promptly. C. You must take antibiotics before dental work, bladder, bowel or other surgery. Your doctor will provide you with a permanent care to carry describing this precaution. IMPORTANT: * REMEMBER TO TAKE ASPIRIN, 81 MG, TWICE DAILY FOR 4 WEEKS UNLESS OTHERWISE DIRECTED. THIS IS YOUR BLOOD THINNER. * HIGH RISK PATIENTS MAY BE PRESCRIBED A STRONGER BLOOD THINNER. THIS WILL BE PROVIDED AT DISCHARGE. * CALL IF INCREASED PAIN, REDNESS, DRAINAGE OR FEVER GREATER THAT 101. * WEAR VALERIA HOSE 20 HOURS PER DAY FOR 2 WEEKS. * YOU MAY HAVE A LARGE BAND-AID LIKE DRESSING (SILVERON). THIS WILL REMAIN ON YOUR INCISION FOR 7 DAYS, THEN CAN BE REMOVED. IF INCISION IS LEAKING THROUGH DRESSING, CALL THE OFFICE . FOLLOW UP VISIT: If appointment is not already scheduled: Please call [facility] to make a follow-up appointment for 2 weeks after your surgery at . YOU HAVE A WOUND VAC OVER YOUR INCISION. REMOVE AND DISCARD ALL PARTS 1 WEEK POST OP AND COVER DAILY WITH STERILE DRESSINGS UNTIL FOLLOW UP IN OFFICE. CONTACT COUMADIN CLINIC SATURDAY TO CHECK BLOOD WORK SO THEY CAN MANAGE YOUR COUMADIN YOUR INR WILL NOT BE THERAPEUTIC FOR SEVERAL DAYS. CONTINUE LOVENOX INJECTIONS UNTIL INR IS THERAPEUTIC PER COUMADIN CLINIC. Current Hospital Diet Patient's current hospital diet: Regular Diet Discharge Diet Recommended Diet: Regular Diet Procedures Procedures Performed: Left Total Knee Arthroplasty Pending Studies Studies pending at discharge: no Laboratory Results Hemoglobin A1c Test 08/10/16 12:14 Range/Units Estimated Average Glucose 111 mg/dl Hemoglobin A1c 5.5 4.5-5.6 % Medical Emergencies . Who to Call and When: Medical Emergencies: If at any time you feel your situation is an emergency, please call 911 immediately. . Non-Emergent Contact Non-Emergency issues call your: Primary Care Provider . "Provider Documentation" section prepared by Deuce Dumont. . Dot Compliance Manager Recommendations Dot Compliance Manager Recommendations: Please take all medications as instructed on discharge per list. You will need to continue the Lovenox injections post-operatively in conjunction with Coumadin until your INR is 2-3. You will need a repeat INR check on Saturday, and adjustments per your Coumadin Clinic staff at that time. You will be provided with five days of Lovenox on discharge, however, if your INR is not >2 when that runs out, you may need a refill which can be provided by the Coumadin Clinic staff or your primary care physician (PCP). The discharge prescription has been electronically submitted to your pharmacy. Once the INR is at goal, the Lovenox injections may be stopped. Please continue all post-operative instructions given above. You have a follow-up appointment scheduled with Lindsay Carvalho PA-C ([facility]) on Sat, 09/26 @ 9:45. Please bring all paperwork from this hospitalization and arrive 10 minutes early. It was a pleasure taking care of you! Call if you have any questions or problems. You can reach a [facility] hospitalist on duty at [facility] 24 hours a day by calling [phone]. Take care of yourself. Osiris Lara, DO [facility] Hospitalist VTE Core Measure Inpt VTE Proph given/why not?: Enoxaparin (Lovenox)SQ, Warfarin (Coumadin), TNivia Dean, SCD's PA Drug Monitoring Program Search Results: patient reviewed within database, no issues identified
[2016-09-21 08:51] LABS: CALCIUM 7.7 mg/dl (8.5-10.1)
[2016-09-21 08:58] LABS: BUN/CREATININE RATIO 15.3 (10-20); CREATININE 0.93 mg/dl (0.60-1.20); POTASSIUM 4.1 mmol/L (3.5-5.1)
[2016-09-21] MEDS: BuPROPion SR 150 MG TABCR PO SCH (09:00)
[2016-09-21] MEDS ORDERED: ENOXAPARIN 120 MG/0.8 ML SYR SQ SCH (09:00)
[2016-09-21] MEDS: DOCUSATE SODIUM 100 MG CAP PO SCH (09:00)
[2016-09-21 12:10] VITALS: BP 125/69; PULSE 84; TEMP 36.8; O2SAT 99
--- NOTE | 2016-09-21 14:00 | Progress Note ---
Medicine Progress Note Date & Time of Visit: Sep 21, 2016 at 13:46. Subjective 56-year-old female status post left total knee arthroplasty -pain controlled post-op -discussed post-op instructions regarding coumadin and Lovenox. -pt verbalized understanding and notified of follow-up. Objective Last 8 Hrs Date Time Temp Pulse Resp B/P (MAP) Pulse Ox O2 Delivery O2 Flow Rate FiO2 09/21/16 12:10 36.8 84 16 99 Room Air 09/21/16 07:25 Room Air 09/21/16 07:15 36.8 84 16 125/69 (87) 99 Room Air Physical Exam: GEN: WNWD, in no acute distress, alert and appropriate HEENT: NC/AT EXTREMITY: RP and DP palpable 2+ bilat, extremities are warm and well-perfused, L knee wrapped with GIOVANY and covered with ice layla NEURO: CN 2-12 grossly intact MUSC: expected generalized weakness post-op, no gross focal deficits aside from limited LLE movement. SKIN: warm and dry and wound as above. Laboratory Results: 09/21/16 07:27 09/21/16 07:27 Test 08/10/16 00:00 08/10/16 12:14 09/19/16 09:17 09/21/16 07:27 Urine Color DK YELLOW Urine Appearance CLEAR (CLEAR) Urine pH 6.0 (4.5-7.5) Urine Specific [place] 1.024 (1.000-1.030) Urine Protein NEG (NEG) Urine Glucose (UA) NEG (NEG) Urine Ketones TRACE (NEG) Urine Occult Blood TRACE (NEG) Urine Nitrite NEG (NEG) Urine Bilirubin NEG (NEG) Urine Urobilinogen NEG (NEG) Urine Leukocyte Esterase MODERATE (NEG) Urine WBC (Auto) 10-30 /hpf (0-5) Urine RBC (Auto) 10-30 /hpf (0-4) Urine Hyaline Casts (Auto) 0 /lpf (0-5) Urine Epithelial Cells (Auto) >30 /lpf (0-5) Urine Bacteria (Auto) NEG (NEG) Immature Granulocyte % (Auto) 0.3 % White Blood Count 6.17 K/uL (4.8-10.8) Red Blood Count 4.55 M/uL (4.2-5.4) 3.39 M/uL (4.2-5.4) Hemoglobin 12.8 g/dL (12.0-16.0) Hematocrit 39.2 % (37-47) Mean Corpuscular Volume 86.2 fL (80-100) 87.6 fL (80-100) Mean Corpuscular Hemoglobin 28.1 pg (25-34) 26.8 pg (25-34) Mean Corpuscular Hemoglobin Concent 32.7 g/dl (32-36) 30.6 g/dl (32-36) Platelet Count 285 K/uL (130-400) Mean Platelet Volume 9.8 fL (7.4-10.4) 9.9 fL (7.4-10.4) Neutrophils (%) (Auto) 65.7 % Lymphocytes (%) (Auto) 24.5 % Monocytes (%) (Auto) 6.3 % Eosinophils (%) (Auto) 2.9 % Basophils (%) (Auto) 0.3 % Neutrophils # (Auto) 4.05 K/uL (1.4-6.5) Lymphocytes # (Auto) 1.51 K/uL (1.2-3.4) Monocytes # (Auto) 0.39 K/uL (0.11-0.59) Eosinophils # (Auto) 0.18 K/uL (0-0.5) Basophils # (Auto) 0.02 K/uL (0-0.2) Immature Granulocyte # (Auto) 0.02 K/uL (0.00-0.02) Estimated Average Glucose 111 mg/dl Hemoglobin A1c 5.5 % (4.5-5.6) Albumin 3.7 gm/dl (3.4-5.0) Activated Partial Thromboplast Time 31.1 SECONDS (21.0-31.0) Partial Thromboplastin Ratio 1.2 RDW Standard Deviation 48.0 fL (36.4-46.3) RDW Coefficient of Variation 14.8 % (11.5-14.5) Prothrombin Time 12.0 SECONDS (9.0-12.0) Prothromb Time International Ratio 1.1 (0.9-1.1) Anion Gap 5.0 mmol/L (3-11) Est Creatinine Clear Calc Drug Dose 84.6 ml/min Estimated GFR () 79.1 Estimated GFR (Non- 68.2 BUN/Creatinine Ratio 15.3 (10-20) Calcium Level 7.7 mg/dl (8.5-10.1) Date/Time Source Procedure Growth Status 08/10/16 00:00 Urine , Clean Catch Urine Culture - Final Lactobacillus Species Complete Last 24 Hours Test 09/21/16 07:27 White Blood Count 6.79 K/uL Red Blood Count 3.39 M/uL Hemoglobin 9.1 g/dL Hematocrit 29.7 % Mean Corpuscular Volume 87.6 fL Mean Corpuscular Hemoglobin 26.8 pg Mean Corpuscular Hemoglobin Concent 30.6 g/dl RDW Standard Deviation 48.0 fL RDW Coefficient of Variation 14.8 % Platelet Count 200 K/uL Mean Platelet Volume 9.9 fL Prothrombin Time 12.0 SECONDS Prothromb Time International Ratio 1.1 Sodium Level 141 mmol/L Potassium Level 4.1 mmol/L Chloride Level 107 mmol/L Carbon Dioxide Level 29 mmol/L Anion Gap 5.0 mmol/L Blood Urea Nitrogen 14 mg/dl Creatinine 0.93 mg/dl Est Creatinine Clear Calc Drug Dose 84.6 ml/min Estimated GFR () 79.1 Estimated GFR (Non- 68.2 BUN/Creatinine Ratio 15.3 Random Glucose 89 mg/dl Calcium Level 7.7 mg/dl Assessment & Plan 56-year-old female status post left total knee arthroplasty 1. Total knee arthroplasty, POD #2. Pain controlled post-op, tolerating PO and ambulating with PT. 2. History of deep venous thrombosis and pulmonary embolism in 2014 on Coumadin at home. She was bridged perioperatively. Per hospital protocol we gave a prophylactic dose today and will resume full dose Lovenox BID tomorrow. Daily INR 3. HTN-controlled, cont lisinopril 4. Depression-stable. Continue home doses of Wellbutrin and Celexa. 5. Anxiety-stable, Ativan PRN 6. GERD-cont PPI 7. [id number] blood loss-monitor PRN as outpatient DVT prophy-Lovenox/Couamdin as above. This was reviewed with the patient and instructions were placed in "Fork Lift Technician Recommendations" notes. Pt is aware for INR check Mon and Coumadin Clinic sent word that she is being discharged. FULL CODE Dispo-to home today per DO Samreen Pritchett Hospitalist Current Inpatient Medications: Current Inpatient Medications Medications (Trade) Dose Ordered Sig/Khadra Route Start Time Stop Time Status Last Admin Dose Admin Bupropion HCl (Wellbutrin-Sr Tab) 150 mg BID PO 09/19/16 21:00 10/19/16 20:59 09/21/16 09:00 150 MG Citalopram Hydrobromide (celeXA TAB) 20 mg QAM PO 09/20/16 09:00 10/20/16 08:59 09/21/16 08:38 20 MG Furosemide (Lasix Tab) 40 mg QAM PO 09/20/16 09:00 10/20/16 08:59 09/21/16 08:38 40 MG Lisinopril (Zestril Tab) 40 mg QAM PO 09/20/16 09:00 10/20/16 08:59 09/21/16 08:37 40 MG Lorazepam (Ativan Tab) 0.5 mg HS PO 09/19/16 21:00 10/19/16 20:59 09/20/16 20:15 0.5 MG Warfarin Sodium (Coumadin Tab) 3 mg SuTh@1600 PO 09/20/16 16:00 10/20/16 15:59 09/20/16 16:18 3 MG Warfarin Sodium (Coumadin Tab) 6 mg MoTuWeFrSa@1600 PO 09/19/16 16:00 10/19/16 15:59 09/19/16 16:47 6 MG Oxycodone HCl (Roxicodone Immediate Rel Tab) 1 TABLET FOR PAIN RATING... Q4H PRN PO 09/19/16 13:15 10/03/16 13:14 09/21/16 13:09 10 MG Oxycodone HCl (Oxycontin Tab) 10 mg Q12 PO 09/19/16 21:00 10/03/16 20:59 09/21/16 08:36 10 MG Morphine Sulfate (MoRPHine SULFATE INJ) 2 mg Q2H PRN IV 09/19/16 13:15 10/03/16 13:14 Acetaminophen (Tylenol Tab) 1,000 mg Q8 PO 09/19/16 16:00 10/19/16 15:59 09/21/16 05:45 1,000 MG Magnesium Hydroxide (Milk Of Magnesia Susp) 30 ml Q6H PRN PO 09/19/16 13:15 10/19/16 13:14 Bisacodyl (Dulcolax Supp) 10 mg DAILY PRN [place] 09/19/16 13:15 10/19/16 13:14 Sodium Biphosphate/ Sodium Phosphate (Fleet Enema) 132 ml DAILY PRN [place] 09/19/16 13:15 10/19/16 13:14 Docusate Sodium (coLACE CAP) 100 mg BID PO 09/19/16 21:00 10/19/16 20:59 09/21/16 09:00 100 MG Diphenhydramine HCl (Benadryl Cap) 25 mg Q8H PRN PO 09/19/16 13:15 10/19/16 13:14 Zolpidem Tartrate (Ambien Tab) 5 mg HSZ PRN PO 09/19/16 13:15 10/19/16 13:14 Multivitamins (Multivitamin Tab) 1 tab QAM PO 09/20/16 09:00 10/20/16 08:59 09/21/16 08:37 1 TAB Ondansetron HCl (Zofran Inj) 4 mg Q6H PRN IV 09/19/16 13:15 10/19/16 13:14 Metoclopramide HCl (Reglan Inj) 10 mg Q6H PRN IV 09/19/16 13:15 10/19/16 13:14 Pantoprazole Sodium (Protonix Tab) 40 mg QAM PO 09/20/16 09:00 10/20/16 08:59 09/21/16 08:37 40 MG Tramadol HCl (Ultram Tab) 1 tablet for pain rating... Q4H PRN PO 09/19/16 13:15 10/19/16 13:14 Morphine Sulfate (MoRPHine SULFATE INJ) 4 mg Q2H PRN IV 09/19/16 15:00 10/03/16 14:59 Enoxaparin Sodium (Lovenox Inj) 120 mg Q12H SQ 09/21/16 09:00 10/21/16 08:59 09/21/16 08:40 120 MG
--- NOTE | 2016-10-03 12:45 | Discharge Summary ---
Orthopedic Discharge Summary Admission Date/Reason Sep 19, 2016 at 09:30 Left Knee Degenerative Joint Disease. Discharge Date/Disposition Sep 21, 2016 Home Diagnosis Principal Diagnosis: Left knee DJD Procedure(s) Performed Left TKA Medication Reconciliation Pre admit meds Coumadin w Lovenox bridging Pain control Admission Physical Exam As per Admitting History & Physical. Hospital Course (1) Left knee DJD Uneventful, patient did well. Discharge Instructions Please refer to the electronic Patient Visit Report (Discharge Instructions) for additional information.
== END 2016-09-21 14:49 | disposition home or self-care (01) | DRG 470 ==
LOC: C.ACU 08:41 → C.3E 09:30 → ENRESERV 13:45
PROVIDERS: ADMIT Orthopaedic Surgery Sports Medicine; ATTEND Orthopaedic Surgery Sports Medicine
PROC: 0SRD0J9 Replacement of Left Knee Joint with Synthetic Substitute, Cemented, Open Approach (ICD-10-PCS; principal; 2016-09-19 10:45)
DX: M17.12 Unilateral primary osteoarthritis, left knee (principal); D62 Acute posthemorrhagic anemia; Z68.42 Body mass index [BMI] 45.0-49.9, adult; M25.462 Effusion, left knee; M21.162 Varus deformity, not elsewhere classified, left knee; I10 Essential (primary) hypertension; K21.9 Gastro-esophageal reflux disease without esophagitis; K75.81 Nonalcoholic steatohepatitis (NASH); F41.1 Generalized anxiety disorder; F32.9 Major depressive disorder, single episode, unspecified; G47.33 Obstructive sleep apnea (adult) (pediatric); E66.01 Morbid (severe) obesity due to excess calories; Z98.84 Bariatric surgery status; Z99.89 Dependence on other enabling machines and devices; Z86.718 Personal history of other venous thrombosis and embolism; Z86.711 Personal history of pulmonary embolism; Z79.01 Long term (current) use of anticoagulants; Z79.1 Long term (current) use of non-steroidal anti-inflammatories (NSAID); Z79.899 Other long term (current) drug therapy

== ENCOUNTER 2019-12-30 07:58 | Observation (INO) ==
--- NOTE | 2019-12-01 08:47 | PAT Medication Instructions ---
Medication Instructions Date of Service December 01, 2019 Home Medications Medication Instructions Recorded clobetasol 0.05 % topical cream 1 appln TOPICAL BID #60 gm 01/15/19 acetaminophen 325 mg tablet 975 mg PO QID PRN #1 tab 08/14/19 clobetasol 0.05 % topical cream 1 appln TOPICAL BID acetaminophen 325 mg tablet 975 mg PO QID PRN duloxetine 60 mg PO QAM furosemide 40 mg PO QAM lisinopril 40 mg PO QAM tamoxifen 10 mg PO QAM warfarin 6 mg PO HS Continue as directed tamoxifen 10 mg PO QAM ASK your prescriber and surgeon warfarin 6 mg PO HS STOP taking 24 hours before surgery clobetasol 0.05 % topical cream 1 appln TOPICAL BID DO NOT take the morning of surgery furosemide 40 mg PO QAM lisinopril 40 mg PO QAM Take morning of surgery With a small sip of water, OTHERWISE NOTHING TO EAT OR DRINK AFTER MIDNIGHT: acetaminophen 325 mg tablet 975 mg PO QID PRN (okay to take up to 4 hours prior to surgery if needed) duloxetine 60 mg PO QAM Take evening before surgery acetaminophen 325 mg tablet 975 mg PO QID PRN (if needed) Other Notes If you have any questions please call us at [phone] or [phone] or [phone] or [phone]
--- NOTE | 2019-12-01 10:25 | Anesthesiology Consultation ---
Date of Service December 01, 2019 Assessment & Plan (1) Encounter for pre-operative examination: *Per PAT assessment on 11/30: Travel screen- Lives in [facility]. Travel to [facility] for doctor appt. Uses PPE. No known COVID-19 positive contacts. No current COVID-19 related symptoms. Surgeon arranging preop COVID testing. Awaiting results. - Check coags AM DOS (warfarin instructions per surgeon/prescriber/coag clinic) Chart Review Chart Review: Acceptable Risk for Surgery (pending surgeon-ordered PCP clearance ([facility])) and Patient seen in Pre Admission Testing Teaching & Discussion Pre-Anesthesia Teaching/Discussion Notes: Instructed NPO after midnight before surgery,except medications with 15 cc of water. Medication instructions provided according to the PAT guidelines. History Surgery Operation Date: 12/30/19 13:40 Proposed Procedures p Right Total Knee Arthroplasty - Seven Andersen MD Height/Weight Height: 5 ft 3 in Weight: 134.2 kg Allergies Allergy/AdvReac Type Severity Reaction Status Date / Time No Known Allergies Allergy Verified 11/30/19 10:54 Medications Home Medications Medication Instructions Recorded Confirmed Last Taken clobetasol 0.05 % topical cream 1 appln TOPICAL BID #60 gm 01/15/19 11/30/19 Unknown acetaminophen 325 mg tablet 975 mg PO QID PRN #1 tab 08/14/19 11/30/19 Unknown duloxetine 60 mg PO QAM 11/30/19 11/30/19 Unknown furosemide 40 mg PO QAM 11/30/19 11/30/19 Unknown lisinopril 40 mg PO QAM 11/30/19 11/30/19 Unknown tamoxifen 10 mg PO QAM 11/30/19 11/30/19 Unknown warfarin 6 mg PO HS 11/30/19 11/30/19 Unknown Past Medical History Medical History (Updated 12/01/19 @ 11:29 by Mayra Aden) Anxiety Breast cancer s/p left mastectomy (04/2019), chemo History of asthma stable History of atrial fibrillation single episode (5+ years ago) History of DVT (deep vein thrombosis) 2014 (unprovoked)- on warfarin History of pulmonary embolus (PE) 2014 (unprovoked)- on warfarin Morbid obesity Obstructive sleep apnea of adult per records/no device Exercise / Class Metabolic Activity II 4-5 Yardwork/Stairs/Walk up hill Past Family History Family History Father Arthritis Congestive heart failure Hypertension Lung disease Myocardial infarction Rheumatoid arthritis Diabetes Heart disease Mother Depression Lung cancer Lymphedema Hypertension Cancer Family/Other Diabetes Past Surgical History Surgical History Fitting and adjustment of gastric lap band 2004 H/O foot surgery heel spur removal H/O oral surgery TEETH REMOVAL H/O shoulder surgery RIGHT History of knee replacement, total LEFT Hx of breast implant 09/2019 Hx of colonoscopy Hx of laparoscopic gastric banding Hx of left mastectomy 04/2019 Past Anesthesia History No Hx of Anesthesia Complications and No Family Hx of Anesthesia Complications History of PONV No Hx of PONV and No Hx of Motion Sickness Social History Smoking Status: Never smoker Do You Dip or Chew Tobacco: No Hx Alcohol Use: Yes Alcohol type: wine alcohol intake frequency: holidays/special occasions only Hx Substance Use: No substance use type: does not use Review of Systems Patient denies chest pain, shortness of breath, dyspnea on exertion, fever, chills, cough, wheezing, palpitations. Physical Exam Vital Signs VITALS BP 121/66 P 88 TEMP 98.4 SP02 93%RA RESP 16 PHYSICAL Full neck and c-spine range of motion. Full TMJ range of motion. TMD 3 finger breaths Mallampati Score 3 Dentition: missing molar, upper left permanent bridge Lungs: clear throughout to auscultation Cardiac: regular rate and rhythm, I/ systolic murmur Spine: normal Carotid arteries: negative bruit Extremities: no edema Short thick neck Testing Laboratory Results PT 47.1 Seconds (9.0-12.0) H 12/01/19 10:45 INR 4.9 (0.9-1.1) H 12/01/19 10:45 APTT 67.4 Seconds (21.0-31.0) H* 12/01/19 10:45 Hemoglobin A1c 5.8 % (4.5-5.6) H 12/01/19 10:45 Urine Color Dark Yellow 12/01/19 Unknown Urine Appearance Clear (Clear) 12/01/19 Unknown Urine pH 5.0 (4.5-7.5) 12/01/19 Unknown Ur Specific [place] 1.033 (1.000-1.030) H 12/01/19 Unknown Urine Protein Negative (Negative) 12/01/19 Unknown Urine Glucose (UA) Negative (Negative) 12/01/19 Unknown Urine Ketones Trace (Negative) H 12/01/19 Unknown Urine Nitrite Negative (Negative) 12/01/19 Unknown Ur Leukocyte Esterase 1+ (Negative) H 12/01/19 Unknown Urine WBC (Auto) 1-5 /hpf (0-5) 12/01/19 Unknown Urine RBC (Auto) 5-10 /hpf (0-4) H 12/01/19 Unknown U Hyaline Cast (Auto) 0 /lpf (0-5) 12/01/19 Unknown U Epithel Cells (Auto) 10-20 /lpf (0-5) H 12/01/19 Unknown Urine Bacteria (Auto) Negative (Negative) 12/01/19 Unknown Blood Type A Positive 12/01/19 10:45 Antibody Screen NEGATIVE 12/01/19 10:45 Patient follows with [facility] coag clinic. They were made aware of patient's elevated coag findings (labs forwarded to them for their reference). They will contact patient to adjust warfarin/give patient further recommendations. 11/30/19 WBC 4.70 H/H 13.0/40.4 PLATELETS 280 SODIUM 140 POTASSIUM 4.3 CHLORIDE 108 CO2 28 BUN 20 CREATININE 1.03 GLUCOSE 90 Electrocardiogram Date: 09/04/19 SR at 71bpm. Chest X-Ray Date: 09/24/19 Findings: + NAD Stress Test Date: 09/24/19 Type: exercise Normal exercise echo without evidence of inducible ischemia at workload achieved and 96% MPHR. 5.8 METS. Poor exercise tolerance. EF 55-60%. No RWMA at rest. No significant valvular disease (although valves not well visualized). Pulmonary Function Test Date: 09/24/19 Normal spirometry lung volumes and diffusion capacity.
[2019-12-01 11:38] LABS: Appearance Urine Clear (Clear); Bacteria Urine Automated Negative (Negative); Bilirubin Urine Negative (Negative); Blood Urine Negative (Negative); Cast Urine Automated 0 /lpf (0-5); Color Urine Dark Yellow; Glucose Urine UA Negative (Negative); Ketones Urine Trace (Negative); Leukocyte Esterase Urine 1+ (Negative); Nitrite Urine Negative (Negative); Protein Urine Negative (Negative); Specific Gravity Urine 1.033 (1.000-1.030); Urobilinogen Urine Negative (Negative)
[2019-12-01 12:05] LABS: INR 4.9 (0.9-1.1); Partial Thromboplastin Ratio 2.4; Prothrombin Time 47.1 Seconds (9.0-12.0)
[2019-12-01 12:37] LABS: Estimated Average Glucose 120 mg/dl; Hemoglobin A1C 5.8 % (4.5-5.6)
[2019-12-01 12:42] LABS: Partial Thromboplastin Time 67.4 Seconds (21.0-31.0)
--- NOTE | 2019-12-29 21:27 | History and Physical Report ---
DATE OF ADMISSION: 12/30/2019 CHIEF COMPLAINT: Chronic right knee pain. HISTORY OF PRESENT ILLNESS: This is a 59-year-old female patient of Dr. Andersen'andres complaining of chronic right knee pain, longstanding, now progressively getting worse. The patient has failed conservative treatment including intra-articular injections, viscosupplementation, home exercise program and the use of a brace. The patient has increased pain with weightbearing activities and her pain does interfere with her activities of daily living. The patient has been diagnosed with end-stage osteoarthritis per clinical and radiographic exams and wishes to proceed with a right total knee arthroplasty. PAST MEDICAL HISTORY: Hypertension, pulmonary embolism, sleep apnea with the use of CPAP, anxiety, abnormal bleeding, DVT, obesity, dental issues, lobular cancer. SOCIAL HISTORY: Nonsmoker, occasional drinker. PAST SURGICAL HISTORY: Knee replacement, mastectomy and mastectomy implant. FAMILY HISTORY: Noncontributory. REVIEW OF SYSTEMS: Chronic right knee pain and instability. Otherwise, denies any shortness of breath, chest pain, nausea, vomiting or any other joint complaints. MEDICATIONS: Lisinopril 40 mg daily, Coumadin 6 mg daily, furosemide 40 mg daily, duloxetine 30 mg daily, anastrozole 1 mg daily. ALLERGIES: No known drug allergies. PHYSICAL EXAMINATION: GENERAL: Well-developed, well-nourished 59-year-old female, in no acute distress. She is alert and oriented x3 and pleasant. HEENT: Normocephalic, atraumatic. Extraocular motions are intact. Pupils are equal and reactive to light. HEART: Regular rate and rhythm, no murmurs. LUNGS: Clear. ABDOMEN: Soft, nontender, bowel sounds present. RIGHT LOWER EXTREMITY: She has a valgus deformity with lateral joint line tenderness. She has limited range of motion of 0-95 degrees with crepitation and pain with range of motion. She has 4/5 strength with pain. Neurologically and neurovascularly, she is intact in her right lower extremity. DIAGNOSES: Right knee end-stage osteoarthritis, hypertension, pulmonary embolism, sleep apnea with the use of CPAP, anxiety, abnormal bleeding, history of deep vein thrombosis, obesity, dental issues and globular cancer. PLAN: The patient was advised of her diagnosis. Indications, risks, benefits, postop course have all been reviewed. The patient wished to proceed with a right total knee arthroplasty. Necessary consent forms, preoperative testing and clearances will be obtained.
[~2019-12-30 07:58] MED LIST changes: +BUPIVACAINE/EPINEPHRINE 0.25% 1:200,000 30 ML VIAL ONE; -BUPR-79 PO; -CEFAZOLIN 3000 MG/65 ML D5W 65 ML IV SCH; +CEFAZOLIN 3000MG 72.5 ML IV SCH; -CITA20TA4 PO; +CeleBREX 200 MG CAP PO SCH; -DEXAMETHASONE 4 MG TAB PO SCH; -FRS/40 PO; -GABA; -GABAPENTIN 300 MG CAP PO SCH; +GABAPENTIN 600 MG DOSE PO SCH; -LACTATED RINGER'S 1000ML 1,000 ML IV SCH; -LACTATED RINGER'S 1000ML IV SCH; -LACTATED RINGER'S 500 ML IV SCH; -LIDO; +LIDOCAINE HCL 2% 2 ML VIAL/AMP(20MG/ML) INFIL ONE; -LISI40TA PO; -LORA-741 PO; +LR 500ML BOLUS, THEN 15ML/HR IV SCH; -MELOX; -METOCLOPRAMIDE HCL 10 MG TAB PO SCH; +METOCLOPRAMIDE HCL 10 MG TABLET PO SCH; +MIDAZOLAM HCL 1 MG/ML 2ML VIAL ONE; +ONDANSETRON INJ 2 MG/ML 2 ML VIAL ONE; -PRLSR20 PO; +PROPOFOL IV EMULSION 10 MG/ML 20 ML VIAL IV ONE; -ROPIVACAINE 0.5% 5 MG/ML 30 ML VIAL ONE; +ROPIVACAINE 0.5% HCL/PF 150 MG, BUPIVACAINE 0.5% MPF 30 ML, EPINEPHrine 30MG/30ML (OR U... INFIL SCH; -ROPIVACAINE 5MG/ML 30 ML 150 MG, BUPIVACAINE/EPINEPHR 0.5% MPF 30 ML, KETOROLAC TROMETH... INFIL SCH; -WARF3TAB6 PO; -WARF6TAB5 PO; +dexAMETHasone 4 MG TAB PO SCH; +fentaNYL citrate 100 MCG/2 ML VIAL ONE
[2019-12-30] MEDS ORDERED: fentaNYL citrate 100 MCG/2 ML VIAL ONE (08:08)
[2019-12-30] MEDS ORDERED: MIDAZOLAM HCL 1 MG/ML 2ML VIAL ONE ×2 (08:08→10:46)
[2019-12-30] MEDS ORDERED: LIDOCAINE HCL 2% 2 ML VIAL/AMP(20MG/ML) INFIL ONE (08:08)
[2019-12-30] MEDS ORDERED: PROPOFOL IV EMULSION 10 MG/ML 20 ML VIAL IV ONE ×5 (08:08→10:49)
[2019-12-30] MEDS ORDERED: ORTHO JOINT ANESTHETIC ONE (08:23)
[2019-12-30] MEDS ORDERED: BACITRACIN INJ 50,000 UNIT VIAL ONE (08:24)
--- NOTE | 2019-12-30 08:39 | History & Physical Bridge Note ---
Date of Service December 30, 2019 History & Physical Bridge Note I have examined the patient, reviewed the History & Physical and in the interval since the performance of the History & Physical I have noted the following changes of clinical significance: no changes noted
[2019-12-30 08:40] LABS: INR 1.1 (0.9-1.1); Partial Thromboplastin Ratio 1.1; Partial Thromboplastin Time 30.7 Seconds (21.0-31.0); Prothrombin Time 11.4 Seconds (9.0-12.0)
[2019-12-30] MEDS ORDERED: PHENYLEPHRINE 100MCG/ML 5ML SYR ONE (10:34)
[2019-12-30] MEDS ORDERED: ePHEDrine sulfate 50 MG/ML SYR ONE (10:34)
--- NOTE | 2019-12-30 11:29 | Operative Report ---
Post Operative Report Pre & Post Diagnosis Operation Date: 12/30/19 10:20 Pre-Op Diagnosis: Right Knee Osteoarthritis, morbid obesity BMI 53.3 Post-Op Diagnosis: Right Knee Osteoarthritis, morbid obesity BMI 53.3 I identified the patient and participated in the time-out.: Yes Procedure Operation Date: 12/30/19 10:20 Actual Procedures p Right Total Knee Arthroplasty(Right), increased difficulty morbid obesity BMI 53.3, application superficial wound VAC- Seven Andersen MD Surgeon Seven Andersen MD Practice Advisor Thomas JEAN Estimated Blood Loss 10 Findings Consistent with Post-Op Diagnosis Specimens Bone cuts Drains 2 Hemovac Anesthesia Type MAC Spinal Regional Complications none Disposition Accompanied Patient To Recovery: No Indications 59-year-old female with severe osteoarthritis in her right knee. She is a previous successful left knee replacement in the past. Patient's had all conservative management and has failure to alleviate her pain and functional di sability. Patient has been working on weight loss. Description of Procedure The patient was taken to the operating room and anesthetized under spinal MAC regional. Patient was placed supine on the the operating table. A pneumatic tourniquet was placed about the significantly obese right upper thigh. The knee exam demonstrated 0 through 90 degrees range of motion valgus knee mild effusion patellofemoral crepitation. The involved leg was elevated exsanguinated with Esmarch bandage and the pneumatic tourniquet was raised to 350 millimeters michael cury. A longitudinal incision was made across the anterior knee. Skin flaps were elevated. Deeper than typical fat incised down to the fascia. An incision was made into the medial retinaculum and extended up into the mid third of the quadriceps tendon and extended down to the tibial tubercle. Intra-articular findings demonstrated severe tricompartmental DJD [id number] lateral compartment large patellofemoral osteophytes. The knee was exposed by excising cruciate ligaments and menisci. The infrapatellar fat pad was resected. The fat pad over the anterior femur at the upper aspect of the articular surface was resected for placement of the component in that area. A subperiosteal peel lateral release was performed around the patella The [employer] Reissuedney 2.0 total knee arthroplasty system was utilized for the procedure. The custom femoral cutting guide was pinned in position. The distal femoral cut was made. The size 5, 5 in 1 cutting block was placed. The anterior posterior and chamfer cuts were made. The knee was extended and a free hand cut technique was performed to the patella. The patella with was measured and the width was reproduced using a 35 patella component. 3 drill holes are made for the patella component pegs. The tibia was then subluxed. The custom tibial cutting block was pinned in position and the proximal tibial cut was made with the oscillating saw. The size 4 tibial trial was externally rotated in line with the tibial tubercle and pinned in position. The drill and punch for the stem was used. Patient had very hard bone. The femoral trial was inserted and centered the notch cutting devices were used and the collet was placed. Tibial trials were used for the insert. The size 13 trial gave balanced ligaments through full range of motion. Patella tracking was assessed with range of motion. The patella tracked centrally. The trials were removed. The Orthomix anesthetic cocktail was injected per protocol. The cut bone surfaces and soft tissue were copiously irrigated with antibiotic solution with bacitracin. The final components were cemented with Simplex cement. The final components were [employer]hew journey 2.05 posterior stabilized right femoral component, 4 tibial baseplate, 13 mm high flex polyethylene posterior stabilized tibial insert. 35 symmetrical patella.. While the cement cured the Betadine soak was used per protocol. When the cement cured the knee was copiously irrigated with pulsatile lavage antibiotic solution with bacitracin. 2 drains were brought out laterally connected to Hemovac. The quadriceps tendon and medial retinaculum were closed with interrupted [id number] #1 Vicryl sutures. The knee was taken through full range of motion and repair was secure. The subcutaneous tissues were closed with 2-0 Vicryl sutures. The skin was closed with mikey. A superficial wound VAC was applied. The tourniquet was let down and the patient had good capillary refill to the extremity. The patient tolerated the procedure well. There was increased level difficulty due to morbid obesity with operative time increased 35 minutes. My physician assistant federal public defender Thomas JEAN assisted in the procedure including prepping draping leg positioning soft tissue retraction instrument management and assisted in the closure , superficial wound VAC application and will participate in postoperative care the patient. I attest to the content of the Intraoperative Record and any orders documented therein. Any exceptions are noted below.
[2019-12-30] MEDS ORDERED: PROMETHAZINE HCL 12.5 MG in SODIUM CHLORIDE 0.9% 50 ML IV PRN (12:07)
[2019-12-30] MEDS ORDERED: ATROPINE SULFATE 0.1 MG/ML 10ML SYR IV PRN (12:07)
[2019-12-30] MEDS ORDERED: ONDANSETRON INJ 2 MG/ML 2 ML VIAL IV PRN ×2 (12:07→13:10)
[2019-12-30] MEDS ORDERED: ePHEDrine sulfate 50 MG/ML AMP IV PRN (12:07)
[2019-12-30] MEDS ORDERED: fentaNYL citrate 100 MCG/2 ML VIAL IV PRN (12:07)
[2019-12-30] MEDS ORDERED: HYDROmorphone INJ 2 MG/ML SYR/VIAL IV PRN (12:07)
--- NOTE | 2019-12-30 12:29 | XRay Report ---
XR knee RT 1 or 2V routine HISTORY: 59 years-old Female Surgical Post Op right knee total joint arthroplasty COMPARISON: None. TECHNIQUE: 2 views the right knee FINDINGS: Right knee total arthroplasty and patella resurfacing. Anterior midline skin mikey are noted along with expected postoperative soft tissue swelling and deep tissue air with surgical drainage catheter. No acute fracture or unexpected retained radiopaque foreign body. IMPRESSION: Right knee total joint arthroplasty and patella resurfacing with expected postoperative c hanges. ACT 112: Negative or not required by law. The above report was generated using voice recognition software. It may contain grammatical, syntax o r spelling errors. Electronically signed by: Yannick Aldrich M.D. 12/30/2019 12:28 PM
--- NOTE | 2019-12-30 12:42 | Anesthesiology Progress Note ---
Date of Service December 30, 2019 Anesthesia Post Procedure Vital Signs Vital Signs: Temp Pulse Pulse Resp BP Pulse Ox 12/30/19 12:30 36.4 C L 78 23 154/74 H 94 12/30/19 12:20 77 22 153/71 H 94 12/30/19 12:10 74 18 135/73 98 12/30/19 12:00 36.2 C L 87 18 124/65 94 12/30/19 09:10 36.6 C 81 18 142/81 H 96 12/30/19 08:36 37 C 85 20 148/74 H 97 Transfer of Care Handoff Completed per policy Notes Mental Status: alert / awake / arousable and participated in evaluation Patient Amnestic to Procedure: Yes Nausea / Vomiting: adequately controlled Pain: adequately controlled Airway Patency, RR, SpO2: stable & adequate BP & HR: stable & adequate Hydration State: stable & adequate Neuraxial Anesthesia: was administered and sensory block is resolving Anesthetic Complications: no major complications apparent and Pt Satisfied with anesthetic care
[2019-12-30] MEDS ORDERED: bisacodyL 10 MG SUPP PR PRN (13:10)
[2019-12-30] MEDS ORDERED: SODIUM CHLORIDE 0.9% 1000ML 1,000 ML IV SCH (13:10)
[2019-12-30] MEDS ORDERED: MAGNESIUM HYDROXIDE SUSP 30 ML UDC PO PRN (13:10)
[2019-12-30] MEDS ORDERED: NALOXONE HCL 0.4 MG/1 ML VIAL/CARP IV PRN (13:10)
[2019-12-30] MEDS ORDERED: HYDROmorphone INJ 0.5 MG/0.5 ML SYR IV PRN (13:10)
--- NOTE | 2019-12-30 13:43 | Hospitalist Consultation ---
Date of Consultation December 30, 2019 Assessment & Plan (1) Status post total right knee replacement: - Pain management, bowel regimen and DVT ppx with lovenox inj bridging to coumadin 6 mg daily- per the primary team - PT/OT consults, pt is planning on outpatient therapy and has appt scheduled on the - Follow am CBC to monitor for acute blood loss (2) Breast cancer: -Invasive lobular carcinoma origionally dx 02/09/19. S/p left mastectomy in Apr 2019 with pocket implant in 09/2019 - no hx of chemotherapy or radiation. -Continue tamoxifen 10 mg daily (3) Morbid obesity with BMI of 50.0-59.9, adult: -Hx of lap band placement [facility] in 2004 -Diet and exercise to be encouraged -BMI 53.3 (4) HTN (hypertension) with goal to be determined: -BP 148/80, -Continue on [employer] medications including lisinopril 40 mg QAM, Lasix 40 mg QAM -Caution for fluid overload s/p surgical procedure - will stop NSS now. (5) History of pulmonary embolus (PE): - 06/08/2014 had PE and LLE dvt - was on estrogen replacement therapy at that time. - on warfarin indefinitely - resume today per ortho- safe from surgical standpoint - bridging with warfarin - Follow INR and CBC with am labs (6) History of DVT (deep vein thrombosis): (7) History of esophageal reflux: - stable (8) Depression: (9) COLIN (obstructive sleep apnea): -Brought home CPAP machine, may use during admission (10) Generalized anxiety disorder: - cont Cymbalta 60 mg daily DVT ppx: Lovenox inj bridging to coumadin CODE: FULL Thank you for involving us in the care of Mrs. Perez. Please do not hesitate to call with questions or concerns. Supervising Physician Co-Signing Physician Notes PA Supervision Note: I personally saw and examined the patient. I verified all tobar points and agree with MIRANDA Conde with the following exceptions and/or additions: Patient is here status post right total knee arthroplasty. She had some nausea with vomiting just before I saw her but was feeling better. Relates that to her history of lap band surgery and inability to eat large volumes of food and she had to start eating lunch. Denies chest pain or shortness of breath, no lightheadedness. Pain is controlled in the knee. History and ROS reviewed as above Vitals reviewed Gen: AAOx3, NAD, morbidly obese HEENT: Anicteric sclerae, EOMI CV: RRR no mgr nl S1S2 Pulm: CTAB no wcr Abd: +BS soft NT ND no masses or hernias Ext: No edema, 2+ DP pulses, able to wiggle toes and sensation intact in feet, right lower extremity with large Hieu wrap in place and drain with bloody drainage Skin: No rashes, warm/dry Neuro: Full strength throughout 59-year-old female with history of lap band surgery, morbid obesity, depression/anxiety, HTN, breast cancer, DVT/PE, here for right TKA. We will follow along to help manage anticoagulation and follow blood count in the morning. Starting Coumadin loading dose today of 10 mg and then 6 mg daily starting tomorrow. Will bridge with therapeutic 1 mg/kilogram twice daily of Lovenox starting tomorrow morning as per orthopedic surgery. Blood pressures are slightly elevated here. Okay to continue Lasix and lisinopril in the morning and follow blood pressures. History of Present Illness Reason for Consultation: Post op medical management Attending Physician: Seven Andersen MD History of Present Illness This is a 59-year-old female with PMHx of HTN, history of DVT/PE, breast cancer diagnosed in February 2019 s/p left mastectomy 04/2019 and implant in 09/2019, GERD, morbid obesity with BMI 53.3, anxiety, depression, who presented for elective right total knee arthroplasty by Dr. Andersen on 12/30/2019. She is seen sitting up at bedside eating lunch, tolerating diet without nausea or vomiting. Last bowel movement was yesterday. Is able to move her right leg and toes without difficulty, numbness is resolving, no pain. Her plan is to complete physical therapy as an outpatient starting on the . She denies any other acute complaints. Allergies Allergy/AdvReac Type Severity Reaction Status Date / Time No Known Allergies Allergy Verified 12/30/19 08:27 Home Medications Home Medications Medication Instructions Recorded Confirmed Type clobetasol 0.05 % topical cream 1 appln TOPICAL BID #60 gm 01/15/19 12/30/19 Rx acetaminophen 325 mg tablet 975 mg PO QID PRN #1 tab 08/14/19 12/30/19 Rx duloxetine 60 mg PO QAM 11/30/19 12/30/19 History furosemide 40 mg PO QAM 11/30/19 12/30/19 History lisinopril 40 mg PO QAM 11/30/19 12/30/19 History tamoxifen 10 mg PO QAM 11/30/19 12/30/19 History warfarin 6 mg tablet 6 mg PO HS 12/02/19 12/30/19 History Patient History Medical History (Updated 12/30/19 @ 14:06 by Jaelyn Conde PA-C) Anxiety Breast cancer s/p left mastectomy (04/2019), chemo History of asthma stable History of atrial fibrillation single episode (5+ years ago) History of DVT (deep vein thrombosis) 2014 (unprovoked)- on warfarin History of pulmonary embolus (PE) 2014 (unprovoked)- on warfarin Morbid obesity Obstructive sleep apnea of adult per records/no device Surgical History (Updated 12/30/19 @ 13:29 by Jaelyn Conde PA-C) Fitting and adjustment of gastric lap band 2004 H/O foot surgery heel spur removal H/O oral surgery TEETH REMOVAL H/O shoulder surgery RIGHT History of knee replacement, total LEFT Hx of breast implant 09/2019 Hx of colonoscopy Hx of laparoscopic gastric banding Hx of left mastectomy 04/2019 Family History Father Arthritis Congestive heart failure Hypertension Lung disease Myocardial infarction Rheumatoid arthritis Diabetes Heart disease Mother Depression Lung cancer Lymphedema Hypertension Cancer Family/Other Diabetes Social History (Updated 01/19/19 @ 15:54 by Socorro Alcaraz MA) Smoking Status: Never smoker Second Hand Exposure: No; Do You Dip or Chew Tobacco: No; Tobacco Cessation Education Requested by Patient: No Hx Alcohol Use: Yes Alcohol type: wine Hx Substance Use: No Preferred Language: Lebanese Communication Ability: Effective 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 Required: No Beliefs That Will Affect Care: None marital status: Single Current Living Situation: Alone 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 Other Information That Helps Us Care for You: No Feels Safe at Home: No Is there a partner from a previous relationship who is making you feel unsafe now?: No Any Concerns about Your Family Situation: No Would You Like to Speak to Someone About Your Situation: No Safety Concerns: Feels Safe At This Time Childhood Exposure to Second-Hand Smoke: Yes caffeine: Yes Dental Care, Regularly: Yes Physical Activity Frequency: 3-4 Times per Week Seatbelt Use: always Sunscreen Use: No Assistive Devices: CPAP, Glasses and Walker Review of Systems Review of Systems: Constitutional: No fever, sweats or chills Eyes: No diplopia, no worsening or blurred vision ENT: normal hearing, no trouble swallowing Respiratory: No cough, sputum, dyspnea at rest or on exertion Cardiovascular: No chest pain, tightness or palpitations Abdomen: No pain, nausea, vomiting, diarrhea or constipation Musculoskeletal: No joint pain, calf pain, swelling Neurologic: + As per HPI. Otherwise no weakness, numbness/tingling, or balance problems Psychiatric: No anxiety or depression Skin: No rash or itch Physical Exam Physical Exam: General: awake, alert, no apparent distress, + morbidly obese, BMI 53.3 Head: Normocephalic, atraumatic ENT: PERRL, EOMI, no pharyngeal exudate, mucous membranes moist Chest: Clear to auscultation, on room air, no adventitious breath sounds Cardiac: Regular rate and rhythm, no murmur, no JVD, normal peripheral pulses, good capillary refill Abdominal: NABS x 4 quadrants, soft, nondistended, nontender to palpation, no rebound or guarding Extremities: + RLE with Hieu wrap in place, dressing C/D/I, ice pack, TAYLOR drain in place, otherwise normal inspection, no peripheral edema or erythema, calfs nontender to palpation Psych: Normal mood and affect Neuro: AAO x 3, strength intact bilaterally and rated 5/5, no motor deficits, speech is clear, no peripheral sensory deficits Results & Data Results & Data ([facility]) Vital Signs (Past 12 Hours) Vital Signs Temp Pulse Pulse Pulse Resp BP Pulse Ox 12/30/19 13:12 36.4 C L 73 16 148/79 H 98 12/30/19 12:45 36.6 C 72 18 127/73 98 12/30/19 12:40 72 19 153/71 H 95 12/30/19 12:30 36.4 C L 78 23 154/74 H 94 12/30/19 12:20 77 22 153/71 H 94 12/30/19 12:10 74 18 135/73 98 12/30/19 12:00 36.2 C L 87 18 124/65 94 12/30/19 09:10 36.6 C 81 18 142/81 H 96 12/30/19 08:36 37 C 85 20 148/74 H 97 PG Care Time/CCT Total # of Minutes Spent Total Time Spent with Patient: Total time spent is greater than 50% in coordination of care (as documented) at patient's floor/unit and/or counseling patient: Coding Level of Care Code 16111 Inpt Consult Level 3 Diagnoses Status post total right knee replacement Z96.651 Breast cancer C50.919 Morbid obesity with BMI of 50.0-59.9, adult E66.01; Z68.43 HTN (hypertension) with goal to be determined I10 History of pulmonary embolus (PE) Z86.711 History of DVT (deep vein thrombosis) Z86.718 History of esophageal reflux Z87.19 Depression F32.9 COLIN (obstructive sleep apnea) G47.33 Generalized anxiety disorder F41.1
[2019-12-30] MEDS: ACETAMINOPHEN 500 MG TAB PO SCH ×2 (14:31→20:56)
[2019-12-30] MEDS ORDERED: WARFARIN SOD 10 MG TAB PO ONE (16:00)
[2019-12-30] MEDS: CEFAZOLIN 2000MG 2,000 MG/15 ML SYR IV SCH (18:28)
[2019-12-30] MEDS: DOCUSATE SODIUM 100 MG CAP PO SCH (20:55)
[2019-12-30] MEDS: SENNA 8.6 MG TAB PO SCH (20:55)
[2019-12-30] MEDS: OXYCODONE HCL IR 5 MG TAB (IMMEDIATE RELEASE) PO PRN ×2 (20:58→22:33)
[2019-12-31] MEDS: CEFAZOLIN 2000MG 2,000 MG/15 ML SYR IV SCH (03:10)
[2019-12-31] MEDS: ACETAMINOPHEN 500 MG TAB PO SCH ×3 (05:56→22:03)
[2019-12-31 06:02] LABS: Hematocrit (blood only) 29.3 % (37-47); Hemoglobin 9.6 g/dL (12.0-16.0); Mean Corpuscular Hemoglobin 27.8 pg (25-34); Mean Corpuscular Hgb Conc 32.8 g/dL (32-36); Mean Corpuscular Volume 84.9 fL (80-100); Mean Platelet Volume 9.6 fL (7.4-10.4); Platelet Count 208 K/uL (130-400); RDW Coefficient of Variation 15.1 % (11.5-14.5); RDW Standard Deviation 46.8 fL (36.4-46.3); Red Blood Count 3.45 M/uL (4.2-5.4); White Blood Count 10.48 K/uL (4.8-10.8)
[2019-12-31 06:11] LABS: INR 1.2 (0.9-1.1); Prothrombin Time 12.4 Seconds (9.0-12.0)
[2019-12-31 06:34] LABS: BUN Creatinine Ratio 19.1 (10-20); Calcium 8.2 mg/dl (8.5-10.1); Creatinine Clr Calc Pharmacy 77.4 ml/min; Est GFR (African American) 66.9; Est GFR (Non-African American) 57.7; Potassium 4.2 mmol/L (3.5-5.1)
[2019-12-31] MEDS: OXYCODONE HCL IR 5 MG TAB (IMMEDIATE RELEASE) PO PRN ×3 (08:35→19:38)
[2019-12-31] MEDS: lisinopriL 40 MG TAB PO SCH (08:36)
[2019-12-31] MEDS: MULTIVITAMIN TAB PO SCH (08:36)
[2019-12-31] MEDS: TAMOXIFEN CITRATE 10 MG TABLET PO SCH (08:36)
[2019-12-31] MEDS: ENOXAPARIN 100 MG/1ML SYR SQ SCH ×2 (08:36→19:39)
[2019-12-31] MEDS: DOCUSATE SODIUM 100 MG CAP PO SCH ×2 (08:37→22:03)
[2019-12-31] MEDS: FUROSEMIDE 40 MG TAB PO SCH (08:37)
[2019-12-31] MEDS: DULOXETINE HCL 60 MG CAP PO SCH (08:37)
--- NOTE | 2019-12-31 09:09 | Hospitalist Progress Note ---
Date of Service December 31, 2019 Assessment & Plan (1) Status post total right knee replacement: * POD#1 s/p RIGHT total knee replacement with Dr. Andersen. EBL 10cc. Pre- op h/h . * PT/OT/pain management/DVT prophylaxis per primary service * DVT prophylaxis with lovenox bridging to coumadin 6mg daily per primary service. INR 1.2 * H/h 9.6/29.3 on AM labs -- acute blood loss anemia from surgery and on coumadin as well as dilutional from IVF * Plans on home with outpatient PT, already scheduled for 01/03 * CBC in AM (2) Breast cancer: * Invasive lobular carcinoma originally dx 02/09/19. S/p left mastectomy in Apr 2019 with pocket implant in 09/2019 * Follows with Dr. Gorman -- had initially been on anastrazole but transitioned to tamoxifen due to side effects * Continue tamoxifen 10 mg daily (3) Morbid obesity with BMI of 50.0-59.9, adult: * Hx of lap band placement [facility] in 2004 * Diet and exercise to be encouraged --> is doing weight watchers online, working with personal property assessor and plans on consultation with Dr. Uribe in near future for possible gastric sleeve/lap removal * BMI 53.3 (4) HTN (hypertension) with goal to be determined: * BP 130/73 * Continue lisinopril 40mg, lasix 40mg (5) History of pulmonary embolus (PE): * 06/08/2014 had PE and LLE dvt - was on estrogen replacement therapy at that time. * on warfarin indefinitely - resumed 12/29 per ortho- safe from surgical standpoint - bridging with warfarin * Follow INR and CBC with am labs (6) History of DVT (deep vein thrombosis): * As above (7) History of esophageal reflux: * Stable -- plans on lap band reversal to help improve this as well (8) Depression: * Duloxetine (9) COLIN (obstructive sleep apnea): * Home CPAP (10) Generalized anxiety disorder: * Continue Cymbalta 60 mg daily (11) Hyperlipidemia: * Outpatient labs August 2019 with elevated cholesterol at 240 --> discussed with patient given family history of heart disease and new pre-DM with A1c 5.8 would recommend initiation of statin for treatment/prevention * Follow up with PCP -=> Will include recommendations in d/c instructions prior to discharge (12) Pre-diabetes: * A1c 5.8 -- discussed diet/exercise * Is already on lisinopril 40mg daily * Follow up with PCP -- could consider initiation of metformin to help with weight loss as well. (13) DVT prophylaxis: * Lovenox bridging to Coumadin as above * INR 1.2 -- repeat in AM Thank you for involving us in the care of Mrs. Perez. Please do not hesitate to call with questions or concerns. Admission and Anticipated Discharge Date Admission Date: December 30, 2019 Subjective Patient evaluated this morning. Sitting up in chair. States she worked with therapy this morning and has outpatient PT already arranged. Pain well controlled with ordered medications. No numbness/tingling. On Coumadin and has had some significant output from her Hemovac but she is hope ful for removal later today or tomorrow. Eating/drinking without difficulty. Upon reviewing outpatient labs as ordered by her PCP, along with discussion regarding strong family history of diabetes and cardiac disease, discovered elevated cholesterol at 240 and A1c in pre-DM range at 5.8. Discussed no initiation of statin at this time but recommended initiating at follow up with PCP and will forward recommendations to her. We discussed A1c and she does note a 40lb weight gain since February after diagnosis of breast ca with subsequent L mastectomy and on tamoxifen (and follows locally with Dr. Gorman -- transitioned from anastrazole to tamoxifen due to pain/numbness in her upper arms with improvement since the switch). She was also started on duloxetine for depression/anxiety. She does note a history of lap band 2004 and has consultation with Dr. Uribe coming up for evaluation of sleeve procedure as well as doing weight watchers online and utilizing a personal property assessor recently for this and is hopeful to regain more exercise function once recovered from recent surgery. Denies fever, chills, chest pain, shortness of breath, cough, sputum production, abdominal pain, nausea, vomiting, dysuria at this time. Hopeful for discharge tomorrow. Review of Systems Review of Systems: All systems reviewed & are unremarkable except as noted in HPI & below Physical Exam Constitutional: WD/WN, vitals as above + obese; no acute distress Eyes: + anicteric sclerae and PERRL ENMT: external ear and nose normal, oropharynx normal Mallampati Class: III Neck: trachea midline, no thyromegaly Respiratory: normal respiratory effort, lungs clear to auscultation Cardiovascular: RRR, no murmur, no edema Gastrointestinal (Abdomen): normal bowel sounds, soft, nontender, no hepatosplenomegaly Musculoskeletal: dressing to R knee, c/d/i with GIOVANY wrap Hemovac with bloody drainage NVI calves non-tender 2+ dp, pt pulses bilaterally 5/5 strength with dorsiflexion/plantar flexion Skin: warm, dry Neurologic: PERRL, EOMI, accommodation nl, no face palsy, no dysarthria Psychiatric: Orientation: alert and oriented x 3 Lymphatic: no cervical or axillary lymphadenopathy Results & Data Results & Data ([facility]) Vital Signs (Past 12 Hours) Vital Signs Temp Pulse Resp BP Pulse Ox 12/31/19 07:50 36.6 C 78 18 149/73 H 98 12/31/19 05:38 120/76 12/31/19 03:15 36.4 C L 85 16 153/81 H 98 12/30/19 23:30 36.8 C 78 16 121/73 97 Laboratory Results 12/31/19 12/31/19 12/31/19 Range/Units 05:50 05:50 05:50 WBC 10.48 (4.8-10.8) K/uL RBC 3.45 L (4.2-5.4) M/uL Hgb 9.6 L (12.0-16.0) g/dL Hct 29.3 L (37-47) % MCV 84.9 (80-100) fL MCH 27.8 (25-34) pg MCHC 32.8 (32-36) g/dL RDW Std Deviation 46.8 H (36.4-46.3) fL RDW Coeff of Jose 15.1 H (11.5-14.5) % Plt Count 208 (130-400) K/uL MPV 9.6 (7.4-10.4) fL PT 12.4 H (9.0-12.0) Seconds INR 1.2 H (0.9-1.1) Sodium 142 (136-145) mmol/L Potassium 4.2 (3.5-5.1) mmol/L Chloride 112 H (98-107) mmol/L Carbon Dioxide 26 (21-32) mmol/L Anion Gap 4.0 (3-11) BUN 20 H (7-18) mg/dl Creatinine 1.05 (0.6-1.2) mg/dl Est Cr Clr Drug Dosing 77.4 ml/min Est GFR ( Amer) 66.9 Est GFR (Non-Af Amer) 57.7 BUN/Creatinine Ratio 19.1 (10-20) Glucose 130 H (70-99) mg/dl Calcium 8.2 L (8.5-10.1) mg/dl PG Care Time/CCT Total # of Minutes Spent Total Time Spent with Patient: Total time spent is greater than 50% in coordination of care (as documented) at patient's floor/unit and/or counseling patient: Coding Level of Care Code 40918 Subseq Obs Care Lvl 2 Diagnoses Status post total right knee replacement Z96.651 Breast cancer C50.919 Morbid obesity with BMI of 50.0-59.9, adult E66.01; Z68.43 HTN (hypertension) with goal to be determined I10 History of pulmonary embolus (PE) Z86.711 History of DVT (deep vein thrombosis) Z86.718 History of esophageal reflux Z87.19 Depression F32.9 COLIN (obstructive sleep apnea) G47.33 Generalized anxiety disorder F41.1 Hyperlipidemia E78.5 Pre-diabetes R73.03 DVT prophylaxis Z29.9
--- NOTE | 2019-12-31 11:21 | Orthopedic Progress Note ---
Date of Service December 31, 2019 Assessment & Plan (1) Status post total right knee replacement: Postop day 1 status post right total knee arthroplasty. PT/OT protocols. Weightbearing as tolerated. DVT prophylaxis-warfarin, Lovenox bridging, SCDs, VALERIA hose. Pain management as written. DC planning-plan for outpatient PT upon discharge. Admission and Anticipated Discharge Date Admission Date: December 30, 2019 Subjective Postop day 1 Patient currently ambulating on her own out of the bathroom. Ambulates in the room and sits down on her own. Doing well today. Pain is controlled. Denies shortness of breath, chest pain, lightheadedness. Physical Exam Physical Exam: Dressings are clean, dry, and intact. Calves are soft nontender. Neurovascular intact. Toes are mobile. Hemovac drainage was 150 mL's from the previous shift. Results & Data ([facility]) Vital Signs (Past 12 Hours) Vital Signs Temp Pulse Resp BP Pulse Ox 12/31/19 11:09 37.0 C 88 18 130/73 99 12/31/19 07:50 36.6 C 78 18 149/73 H 98 12/31/19 05:38 120/76 12/31/19 03:15 36.4 C L 85 16 153/81 H 98 12/30/19 23:30 36.8 C 78 16 121/73 97 Laboratory Results Laboratory Results WBC 10.48 K/uL (4.8-10.8) 12/31/19 05:50 RBC 3.45 M/uL (4.2-5.4) L 12/31/19 05:50 Hgb 9.6 g/dL (12.0-16.0) L 12/31/19 05:50 Hct 29.3 % (37-47) L 12/31/19 05:50 MCV 84.9 fL (80-100) 12/31/19 05:50 MCH 27.8 pg (25-34) 12/31/19 05:50 MCHC 32.8 g/dL (32-36) 12/31/19 05:50 RDW Std Deviation 46.8 fL (36.4-46.3) H 12/31/19 05:50 RDW Coeff of Jose 15.1 % (11.5-14.5) H 12/31/19 05:50 Plt Count 208 K/uL (130-400) 12/31/19 05:50 MPV 9.6 fL (7.4-10.4) 12/31/19 05:50 PT 12.4 Seconds (9.0-12.0) H 12/31/19 05:50 INR 1.2 (0.9-1.1) H 12/31/19 05:50 APTT 30.7 Seconds (21.0-31.0) 12/30/19 08:16 PTT Ratio 1.1 12/30/19 08:16 Sodium 142 mmol/L (136-145) 12/31/19 05:50 Potassium 4.2 mmol/L (3.5-5.1) 12/31/19 05:50 Chloride 112 mmol/L (98-107) H 12/31/19 05:50 Carbon Dioxide 26 mmol/L (21-32) 12/31/19 05:50 Anion Gap 4.0 (3-11) 12/31/19 05:50 BUN 20 mg/dl (7-18) H 12/31/19 05:50 Creatinine 1.05 mg/dl (0.6-1.2) 12/31/19 05:50 Est Cr Clr Drug Dosing 77.4 ml/min 12/31/19 05:50 Est GFR ( Amer) 66.9 12/31/19 05:50 Est GFR (Non-Af Amer) 57.7 12/31/19 05:50 BUN/Creatinine Ratio 19.1 (10-20) 12/31/19 05:50 Glucose 130 mg/dl (70-99) H 12/31/19 05:50 Estimat Average Glucose 120 mg/dl 12/01/19 10:45 Hemoglobin A1c 5.8 % (4.5-5.6) H 12/01/19 10:45 Calcium 8.2 mg/dl (8.5-10.1) L 12/31/19 05:50 Urine Color Dark Yellow 12/01/19 Unknown Urine Appearance Clear (Clear) 12/01/19 Unknown Urine pH 5.0 (4.5-7.5) 12/01/19 Unknown Ur Specific [place] 1.033 (1.000-1.030) H 12/01/19 Unknown Urine Protein Negative (Negative) 12/01/19 Unknown Urine Glucose (UA) Negative (Negative) 12/01/19 Unknown Urine Ketones Trace (Negative) H 12/01/19 Unknown Urine Blood Negative (Negative) 12/01/19 Unknown Urine Nitrite Negative (Negative) 12/01/19 Unknown Urine Bilirubin Negative (Negative) 12/01/19 Unknown Urine Urobilinogen Negative (Negative) 12/01/19 Unknown Ur Leukocyte Esterase 1+ (Negative) H 12/01/19 Unknown Urine WBC (Auto) 1-5 /hpf (0-5) 12/01/19 Unknown Urine RBC (Auto) 5-10 /hpf (0-4) H 12/01/19 Unknown U Hyaline Cast (Auto) 0 /lpf (0-5) 12/01/19 Unknown U Epithel Cells (Auto) 10-20 /lpf (0-5) H 12/01/19 Unknown Urine Bacteria (Auto) Negative (Negative) 12/01/19 Unknown Blood Type A Positive 12/01/19 10:45 Antibody Screen NEGATIVE 12/01/19 10:45
[2019-12-31] MEDS ORDERED: WARFARIN SOD 6 MG TAB PO SCH (16:00)
[2019-12-31] MEDS: SENNA 8.6 MG TAB PO SCH (22:03)
[2020-01-01] MEDS: ACETAMINOPHEN 500 MG TAB PO SCH (05:11)
[2020-01-01 05:51] LABS: Basophils # (auto) 0.01 K/uL (0-0.2); Basophils % (auto) 0.1 %; Eosinophils # (auto) 0.05 K/uL (0-0.5); Eosinophils % (auto) 0.6 %; Hematocrit (blood only) 27.2 % (37-47); Hemoglobin 8.9 g/dL (12.0-16.0); Immature Granulocytes # (auto) 0.02 K/uL (0.00-0.02); Immature Granulocytes % (auto) 0.3 %; Lymphocytes # (auto) 2.58 K/uL (1.2-3.4); Lymphocytes % (auto) 33.1 %; Mean Corpuscular Hgb Conc 32.7 g/dL (32-36); Mean Corpuscular Volume 85.5 fL (80-100); Mean Platelet Volume 9.8 fL (7.4-10.4); Monocytes # (auto) 0.76 K/uL (0.11-0.59); Monocytes % (auto) 9.7 %; Neutrophils # (auto) 4.38 K/uL (1.4-6.5); Neutrophils % (auto) 56.2 %; Platelet Count 202 K/uL (130-400); RDW Coefficient of Variation 15.5 % (11.5-14.5); RDW Standard Deviation 48.9 fL (36.4-46.3); Red Blood Count 3.18 M/uL (4.2-5.4)
[2020-01-01 06:12] LABS: INR 1.7 (0.9-1.1); Prothrombin Time 17.9 Seconds (9.0-12.0)
[2020-01-01 06:20] LABS: BUN Creatinine Ratio 22.4 (10-20); Calcium 7.8 mg/dl (8.5-10.1); Creatinine Clr Calc Pharmacy 76.6 ml/min; Est GFR (African American) 66.1; Potassium 3.8 mmol/L (3.5-5.1)
--- NOTE | 2020-01-01 07:15 | Orthopedic Progress Note ---
Date of Service January 01, 2020 Assessment & Plan (1) Status post total right knee replacement: Postop day 2 status post right total knee arthroplasty. PT/OT protocols. Weightbearing as tolerated. DVT prophylaxis-warfarin, Lovenox bridging, SCDs, VALERIA cruz- Patient has f/u with coumadin clinic today, will adjust meds per clinic, patient has own meds. Pain management as written. DC planning-plan for outpatient PT today. Admission and Anticipated Discharge Date Admission Date: December 30, 2019 Subjective POD #2 Doing well. Denies SOB, CP, N/V Pain controlled well. INR 1.7 Did well in PT. Physical Exam Physical Exam: Right knee prevena c/d/i, no drainage. Toes/ ankle mobile. No calf tenderness. VSS A&Ox3 Results & Data ([facility]) Vital Signs (Past 12 Hours) Vital Signs Temp Pulse Resp BP Pulse Ox 01/01/20 06:45 36.6 C 73 16 107/66 99 12/31/19 23:19 36.6 C 85 16 109/70 96
[2020-01-01] MEDS: DULOXETINE HCL 60 MG CAP PO SCH (07:55)
[2020-01-01] MEDS: lisinopriL 40 MG TAB PO SCH (07:55)
[2020-01-01] MEDS: FUROSEMIDE 40 MG TAB PO SCH (07:56)
[2020-01-01] MEDS: ENOXAPARIN 100 MG/1ML SYR SQ SCH (07:56)
[2020-01-01] MEDS: DOCUSATE SODIUM 100 MG CAP PO SCH (07:56)
[2020-01-01] MEDS: TAMOXIFEN CITRATE 10 MG TABLET PO SCH (07:56)
[2020-01-01] MEDS: MULTIVITAMIN TAB PO SCH (07:56)
[2020-01-01] MEDS: OXYCODONE HCL IR 5 MG TAB (IMMEDIATE RELEASE) PO PRN (07:59)
--- NOTE | 2020-01-01 10:37 | Hospitalist Progress Note ---
Date of Service January 01, 2020 Assessment & Plan (1) Status post total right knee replacement: * POD#2 s/p RIGHT total knee replacement with Dr. Andersen. EBL 10cc. Pre- op h/h . * PT/OT/pain management/DVT prophylaxis per primary service * DVT prophylaxis with lovenox bridging to coumadin 6mg daily per primary service. INR 1.7 * H/h down to 8.9/27.2 -- acute blood loss anemia from surgery on coumadin/lovenox as well as dilutional from IVF. Patient does endorse fatigue but no cp/sob and states she did not sleep well. Sat 99% on RA. * Recommend repeating blood counts outpatient to ensure stability if symptomatic * Plans on home with outpatient PT, scheduled for 01/03 (2) Breast cancer: * Invasive lobular carcinoma originally dx 02/09/19. S/p left mastectomy in Apr 2019 with pocket implant in 09/2019 * Follows with Dr. Gorman -- had initially been on anastrazole but transitioned to tamoxifen due to side effects * Continue tamoxifen 10 mg daily (3) Morbid obesity with BMI of 50.0-59.9, adult: * Hx of lap band placement [facility] in 2004 * Diet and exercise to be encouraged --> is doing weight watchers online, working with personal lines account manager and plans on consultation with Dr. Uribe in near future for possible gastric sleeve/lap removal * BMI 53.3 (4) HTN (hypertension) with goal to be determined: * BP stable * Continue lisinopril 40mg, lasix 40mg (5) History of pulmonary embolus (PE): * 06/08/2014 had PE and LLE dvt - was on estrogen replacement therapy at that time. * on warfarin indefinitely - resumed 12/29 per ortho- safe from surgical standpoint - bridging with warfarin * Follow INR with coag clinic appt today (6) History of DVT (deep vein thrombosis): * As above (7) History of esophageal reflux: * Stable -- plans on lap band reversal to help improve this as well (8) Depression: * Duloxetine (9) COLIN (obstructive sleep apnea): * Home CPAP (10) Generalized anxiety disorder: * Continue Cymbalta 60 mg daily (11) Hyperlipidemia: * Outpatient labs August 2019 with elevated cholesterol at 240 --> discussed with patient given family history of heart disease and new pre-DM with A1c 5.8 would recommend initiation of statin for treatment/prevention * Follow up with PCP -=> Will include recommendations in d/c instructions prior to discharge (12) Pre-diabetes: * A1c 5.8 -- discussed diet/exercise * Is already on lisinopril 40mg daily * Follow up with PCP -- could consider initiation of metformin to help with weight loss as well. (13) DVT prophylaxis: * Lovenox bridging to Coumadin as above * INR 1.7 as above -- coag clinic appointment today Thank you for involving us in the care of Mrs. Perez. Please do not hesitate to call with questions or concerns. Medicine will sign off. Admission and Anticipated Discharge Date Admission Date: December 30, 2019 Subjective Patient doing well. Drain removed last evening but will need dressing change prior to discharge. Some fatigue today but states she did not sleep very well last evening as she was hoping to. Denies fever, chills, chest pain, palpitations, shortness of breath, abdominal pain, n/v, dysuria at this time. No BM but denies pain and hopeful for BM at home today once discharged. Has appointment with coag clinic later today for her lovenox/coumadin bridging and has outpatient PT arranged for at discharge. Discussed following up with her PCP regarding A1c and Lipid panel for initiation/prevention and to continue with follow up for weight management. Review of Systems Review of Systems: All systems reviewed & are unremarkable except as noted in HPI & below Physical Exam Constitutional: WD/WN, vitals as above + obese; no acute distress Eyes: + anicteric sclerae and PERRL ENMT: external ear and nose normal, oropharynx normal Mallampati Class: III Neck: trachea midline, no thyromegaly Respiratory: normal respiratory effort, lungs clear to auscultation Cardiovascular: RRR, no murmur, no edema Gastrointestinal (Abdomen): normal bowel sounds, soft, nontender, no hepatosplenomegaly Musculoskeletal: dressing to R knee, c/d/i with GIOVANY wrap Prevena intact, gree light on NVI calves non-tender 2+ dp, pt pulses bilaterally 5/5 strength with dorsiflexion/plantar flexion Neurologic: PERRL, EOMI, accommodation nl, no face palsy, no dysarthria Psychiatric: Orientation: alert and oriented x 3 Lymphatic: no cervical or axillary lymphadenopathy Results & Data Results & Data ([facility]) Vital Signs (Past 12 Hours) Vital Signs Temp Pulse Pulse Resp BP Pulse Ox 01/01/20 10:04 36.6 C 72 73 16 107/66 99 01/01/20 09:49 36.6 C 72 73 16 107/66 99 01/01/20 06:45 36.6 C 73 16 107/66 99 12/31/19 23:19 36.6 C 85 16 109/70 96 Laboratory Results 01/01/20 01/01/20 01/01/20 Range/Units 05:34 05:34 05:34 WBC 7.80 (4.8-10.8) K/uL RBC 3.18 L (4.2-5.4) M/uL Hgb 8.9 L (12.0-16.0) g/dL Hct 27.2 L (37-47) % MCV 85.5 (80-100) fL MCH 28.0 (25-34) pg MCHC 32.7 (32-36) g/dL RDW Std Deviation 48.9 H (36.4-46.3) fL RDW Coeff of Jose 15.5 H (11.5-14.5) % Plt Count 202 (130-400) K/uL MPV 9.8 (7.4-10.4) fL Immature Gran % (Auto) 0.3 % Neut % (Auto) 56.2 % Lymph % (Auto) 33.1 % [place] % (Auto) 9.7 % Eos % (Auto) 0.6 % Baso % (Auto) 0.1 % Neut # (Auto) 4.38 (1.4-6.5) K/uL Lymph # (Auto) 2.58 (1.2-3.4) K/uL [place] # (Auto) 0.76 H (0.11-0.59) K/uL Eos # (Auto) 0.05 (0-0.5) K/uL Baso # (Auto) 0.01 (0-0.2) K/uL Immature Gran # (Auto) 0.02 (0.00-0.02) K/uL PT 17.9 H (9.0-12.0) Seconds INR 1.7 H (0.9-1.1) Sodium 142 (136-145) mmol/L Potassium 3.8 (3.5-5.1) mmol/L Chloride 109 H (98-107) mmol/L Carbon Dioxide 28 (21-32) mmol/L Anion Gap 5.0 (3-11) BUN 24 H (7-18) mg/dl Creatinine 1.06 (0.6-1.2) mg/dl Est Cr Clr Drug Dosing 76.6 ml/min Est GFR ( Amer) 66.1 Est GFR (Non-Af Amer) 57.0 BUN/Creatinine Ratio 22.4 H (10-20) Glucose 94 (70-99) mg/dl Calcium 7.8 L (8.5-10.1) mg/dl PG Care Time/CCT Total # of Minutes Spent Total Time Spent with Patient: Total time spent is greater than 50% in coordination of care (as documented) at patient's floor/unit and/or counseling patient: Coding Level of Care Code 28691 Subseq Hosp Care Lvl 1 Diagnoses Status post total right knee replacement Z96.651 Breast cancer C50.919 Morbid obesity with BMI of 50.0-59.9, adult E66.01; Z68.43 HTN (hypertension) with goal to be determined I10 History of pulmonary embolus (PE) Z86.711 History of DVT (deep vein thrombosis) Z86.718 History of esophageal reflux Z87.19 Depression F32.9 COLIN (obstructive sleep apnea) G47.33 Generalized anxiety disorder F41.1 Hyperlipidemia E78.5 Pre-diabetes R73.03 DVT prophylaxis Z29.9
--- NOTE | 2020-01-04 14:29 | Discharge Summary (DS) ---
DISCHARGE DIAGNOSIS: Right knee osteoarthritis. SECONDARY DIAGNOSES: History of breast carcinoma in the past, morbid obesity, hypertension, history of pulmonary embolus, history of DVT, depression, obstructive sleep apnea, generalized anxiety. CONSULTS: Elaine Conde PA-C/Sugey Watkins MD COMPLICATIONS: None. PROCEDURES: Right total knee arthroplasty performed by Dr. Andersen on 12/30/2019. BRIEF HISTORY: As dictated in the history and physical. HOSPITAL SUMMARY: The patient was admitted on the above-noted date and had the above-noted surgery performed, which she tolerated well. [facility] hospitalist service was consulted during her stay for medical management. On her first postoperative day, she was ambulating on her own to the bathroom and she ambulated in the room and sat down on her own. She was doing well, pain was controlled. Denied shortness of breath, chest pain or lightheadedness. Dressings clean, dry and intact. Calves were soft, nontender, neurovascularly intact. Toes were mobile. Hemovac drainage was 150 mL from previous shift. Vital signs were stable. She was afebrile and hemoglobin was 9.6. She was started on her PT and OT protocols, weightbearing as tolerated. DVT prophylaxis with warfarin, and Lovenox bridging, SCDs and VALERIA hose. Pain management as written. She is planning for outpatient PT upon discharge. By her second postoperative day, she was remaining stable. Her drain had been removed the previous evening and she was having a little bit of fatigue that morning but did not sleep very well. She had no other complaints and denied any shortness of breath, chest pain, fever or chills. Hemoglobin had dropped slightly down from 9.6 to 8.9 and her vital signs remaining stable. Prevena dressings were remaining intact and functioning. Calves were soft, nontender, neurovascularly intact. Toes were mobile. She was progressing with her physical therapy and plans were for outpatient PT upon discharge. She was also following up with her Coumadin clinic the day of discharge as well. Plans were to follow her hemoglobin values postoperatively in the outpatient clinic and she was otherwise remaining medically stable and it was felt she could be discharged to home on 01/01/2020. For further review, please see chart. LABORATORY AND X-RAY DATA: As per chart. DISCHARGE INSTRUCTIONS: The patient was discharged to home in satisfactory condition on 01/01/2020. DIET: Diabetic. ACTIVITY: Follow TK instruction sheets and special care instructions as noted. Follow sales support consultant provider's instructions as noted in the discharge instructions for followup with her hemoglobin A1c in 3 months and follow medication recommendations as noted. DISCHARGE MEDICATIONS: Acetaminophen 1000 mg p.o. q. 8 hours, enoxaparin 100 mg subcutaneously q. 12 hours, oxycodone 5 mg p.o. q. 4 hours p.r.n. Resume home meds as listed including warfarin 6 mg p.o. at bedtime. Stop taking previous acetaminophen dosage.
== END 2020-01-01 11:32 | disposition home or self-care (01) ==
LOC: 3E 07:58 → ASU 07:58
DX: K21.9 Gastro-esophageal reflux disease without esophagitis; I10 Essential (primary) hypertension; E78.5 Hyperlipidemia, unspecified; Z96.652 Presence of left artificial knee joint; Z99.89 Dependence on other enabling machines and devices; Z79.899 Other long term (current) drug therapy; Z68.43 Body mass index [BMI] 50.0-59.9, adult; Z85.3 Personal history of malignant neoplasm of breast; G47.33 Obstructive sleep apnea (adult) (pediatric); Z90.12 Acquired absence of left breast and nipple; F41.1 Generalized anxiety disorder; Z86.711 Personal history of pulmonary embolism; Z79.01 Long term (current) use of anticoagulants; Z86.718 Personal history of other venous thrombosis and embolism; R73.03 Prediabetes; F32.9 Major depressive disorder, single episode, unspecified; M17.11 Unilateral primary osteoarthritis, right knee; E66.01 Morbid (severe) obesity due to excess calories

== ENCOUNTER 2024-11-18 08:20 | Observation (INO) ==
--- NOTE | 2024-10-30 09:41 | PAT Medication Instructions ---
Medication Instructions Date of Service October 30, 2024 Home Medications Medication Instructions Recorded cholecalciferol (vitamin D3) 50 100 mcg (2 x 50 mcg (2,000 unit)) 12/20/22 mcg (2,000 unit) capsule PO DAILY #30 caps CPAP Machine #1 ea 08/12/23 CPAP Supplies #1 ea 08/12/23 buspirone 15 mg tablet 15 mg PO BID #180 tabs 07/03/24 furosemide 40 mg tablet 40 mg PO QAM #90 tabs 07/03/24 lisinopril 40 mg tablet 40 mg PO QAM #90 tabs 09/01/24 warfarin 6 mg tablet 6 mg PO HS cetirizine 10 mg tablet (Zyrtec) 10 mg PO DAILY PRN allergies cholecalciferol (vitamin D3) 50 mcg (2,000 unit) capsule 100 mcg (2 x 50 mcg (2,000 unit)) PO DAILY mecobalamin (vitamin B12) 1,000 mcg chewable tablet 1,000 mcg PO DAILY buspirone 15 mg tablet 15 mg PO BID furosemide 40 mg tablet 40 mg PO QAM lisinopril 40 mg tablet 40 mg PO QAM venlafaxine 150 mg capsule,extended release 24 hr 150 mg PO QAM ASK your prescriber and surgeon warfarin 6 mg tablet 6 mg PO HS DO NOT take the morning of surgery cetirizine 10 mg tablet (Zyrtec) 10 mg PO DAILY PRN allergies cholecalciferol (vitamin D3) 50 mcg (2,000 unit) capsule 100 mcg (2 x 50 mcg (2,000 unit)) PO DAILY mecobalamin (vitamin B12) 1,000 mcg chewable tablet 1,000 mcg PO DAILY furosemide 40 mg tablet 40 mg PO QAM lisinopril 40 mg tablet 40 mg PO QAM Take morning of surgery With a small sip of water, OTHERWISE NOTHING TO EAT OR DRINK AFTER MIDNIGHT: buspirone 15 mg tablet 15 mg PO BID venlafaxine 150 mg capsule,extended release 24 hr 150 mg PO QAM Take evening before surgery cetirizine 10 mg tablet (Zyrtec) 10 mg PO DAILY PRN allergies (if needed) buspirone 15 mg tablet 15 mg PO BID Other Notes If you have any questions please call us at [phone] or [phone] or [phone] or [phone]
--- NOTE | 2024-11-04 14:22 | Anesthesiology Consultation ---
Date of Service November 04, 2024 Assessment & Plan (1) Encounter for pre-operative examination: - Check coags DOS (warfarin instructions per surgeon/prescriber) - Infectious disease screening: Per assessment on 11/04/24- No known recent infectious disease contacts or current infectious disease symptoms. - PCP visit (11/09/24): "Medically optimized, no medical contraindications to surgery at this time." Perioperative warfarin + lovenox bridging instructions provided in visit note. Chart Review Chart Review: Acceptable Risk for Surgery and Patient seen in Pre Admission Testing Teaching & Discussion Pre-Anesthesia Teaching/Discussion Notes: Instructed NPO after midnight before surgery,except medications with 15 cc of water. Medication instructions provided according to the PAT guidelines. History Surgery Operation Date: 11/18/24 10:10 Proposed Procedures p Right Total Shoulder Arthroplasty, Rotator Cuff Repair with [employer]plant, Biceps Tenodesis - Seven Andersen MD Height/Weight Height: 5 ft 3 in Weight: 134.5 kg Allergies Allergy/AdvReac Type Severity Reaction Status Date / Time sulfamethoxazole Allergy Mild Hives Verified 11/09/24 13:29 [From Bactrim] trimethoprim [From Bactrim] Allergy Mild Hives Verified 11/09/24 13:29 Medications Home Medications Medication Instructions Recorded Confirmed Last Taken warfarin 6 mg tablet 6 mg PO HS 12/02/19 11/09/24 12/24/19 20:00 cetirizine 10 mg tablet (Zyrtec) 10 mg PO DAILY PRN allergies 04/14/20 11/09/24 Unknown cholecalciferol (vitamin D3) 50 100 mcg (2 x 50 mcg (2,000 unit)) 12/20/22 11/09/24 Unknown mcg (2,000 unit) capsule PO DAILY #30 caps CPAP Machine #1 ea 08/12/23 11/09/24 Unknown CPAP Supplies #1 ea 08/12/23 11/09/24 Unknown mecobalamin (vitamin B12) 1,000 1,000 mcg PO DAILY 08/13/23 11/09/24 Unknown mcg chewable tablet buspirone 15 mg tablet 15 mg PO BID #180 tabs 07/03/24 11/09/24 Unknown furosemide 40 mg tablet 40 mg PO QAM #90 tabs 07/03/24 11/09/24 Unknown lisinopril 40 mg tablet 40 mg PO QAM #90 tabs 05/27/25 08/04/25 Unknown venlafaxine 150 mg 150 mg PO QAM 10/29/24 11/09/24 Unknown capsule,extended release 24 hr enoxaparin 150 mg/mL subcutaneous 133 mg (0.8867 mL) subcut Q12H #10 11/09/24 11/09/24 Unknown syringe mL Past Medical History Medical History Allergic rhinitis Depression Esophageal reflux Generalized anxiety disorder History of asthma Per remote records, patient denies official diagnosis, indicates that previous inhaler rx was for "sinus issues" History of atrial fibrillation Single episode (5+ years ago) History of hypothyroidism Previous synthroid discontinued Euthyroid off meds (TSH 3.401 06/2024) HTN (hypertension) Hx of deep venous thrombosis DVT > PE 2014 (unprovoked) Taking Warfarin No issues since Hx pulmonary embolism DVT > PE 2014 (unprovoked) Taking Warfarin No issues since HX: breast cancer s/p left mastectomy (04/2019), states no chemo - was on hormone jocelyn x 5 years- ended 04/2024 [facility] discharged patient Hyperlipidemia Metabolic syndrome Morbid obesity Obstructive sleep apnea of adult CPAP (compliant) Prediabetes Per records, patient denies A1C 06/08/24 5.7% Exercise / Class Metabolic Activity II 4-5 Yardwork/Stairs/Walk up hill (one FS: No CP, no SOB) Past Family History Family History Father Arthritis Congestive heart failure Hypertension Lung disease Myocardial infarction Rheumatoid arthritis Diabetes Heart disease Mother Depression Lung cancer Lymphedema Hypertension Cancer Family/Other Diabetes Past Surgical History Surgical History Fitting and adjustment of gastric lap band 2004 H/O foot surgery (2002) Right (heel spur removal) H/O oral surgery Teeth extraction H/O shoulder surgery Right History of knee replacement, total Left (2016) Right (2019) History of root canal procedure 2020 Hx of breast implant (09/2019) Left Hx of colonoscopy Hx of laparoscopic gastric banding 15+ years ago Hx of left mastectomy (04/2019) Denies limb restriction Past Anesthesia History No Hx of Anesthesia Complications and No Family Hx of Anesthesia Complications History of PONV No Hx of PONV and No Hx of Motion Sickness Social History Smoking Status: Never smoker Do You Dip or Chew Tobacco: No Hx Alcohol Use: Yes alcohol intake frequency: holidays/special occasions only Hx Substance Use: No substance use type: does not use Review of Systems Patient denies chest pain, shortness of breath, dyspnea on exertion, fever, chills, cough, wheezing, palpitations. Physical Exam Vital Signs BP 118/85 P 83 TEMP 98.1 SP02 95%RA RESP 18 Physical Full cervical extension range of motion. Full TMJ range of motion. TMD > 3.5 finger breaths Mallampati Score III Dentition: upper/lower partials Lungs: clear throughout to auscultation Cardiac: regular rate and rhythm, no murmurs noted Spine: normal Carotid arteries: negative bruit Extremities: no LE edema Lab Results Anesthesia Preop Results Results Anesthesia Widget: WBC 6.26 K/ul (4.8-10.8) 11/04/24 Hgb 13.4 g/dl (12.0-16.0) 11/04/24 Hct 41.3 % (37.0-47.0) 11/04/24 Plt 259 K/uL (130-400) 11/04/24 Na 139 mmol/L (136-145) 11/04/24 K 4.0 mmol/L (3.5-5.1) 11/04/24 Cl 105 mmol/L (98-107) 11/04/24 CO2 27 mmol/L (21-32) 11/04/24 BUN 20 mg/dl (6-23) 11/04/24 Creat 0.92 mg/dl (0.6-1.2) 11/04/24 Glucose Level 87 mg/dl (70-99(Fasting)) 11/04/24 PT 16.4 Seconds (9.0-12.0) H 11/04/24 PTT 39 Seconds (21-31) H 11/04/24 INR 1.6 (0.9-1.1) H 11/04/24 Urine Color Yellow 11/04/24 Urine Appearance Clear (Clear) 11/04/24 Urine pH 5.5 (4.5-7.5) 11/04/24 Urine Specific [place] 1.019 (1.000-1.030) 11/04/24 Urine Protein Negative (Negative) 11/04/24 Urine Glucose (UA) Negative (Negative) 11/04/24 Urine Ketones Trace (Negative) H 11/04/24 Urine Blood 1+ (Negative) H 11/04/24 Urine Nitrite Negative (Negative) 11/04/24 Urine Bilirubin Negative (Negative) 11/04/24 Urine Urobilinogen Negative (Negative) 11/04/24 Urine Leukocyte Esterase 2+ (Negative) H 11/04/24 Urine WBC (Auto) 11-20 /hpf (0-5) H 11/04/24 Urine RBC (Auto) 0-2 /hpf (0-2) 11/04/24 Urine Hyaline Casts (Auto) 0-2 /lpf (0-2) 11/04/24 Urine Epithelial Cells (Auto) 6-10 /hpf (0-2) H 11/04/24 Urine Bacteria (Auto) 1+ (None Seen) H 11/04/24 Blood Type A Positive 11/04/24 Antibody Screen NEGATIVE 11/04/24 Testing Laboratory Results Surgeon's office made aware of abnormal UA* Electrocardiogram Date: 11/04/24 NSR at 82bpm. "Normal ECG" Chest X-Ray Date: 11/04/24 FINDINGS: Heart size and pulmonary vasculature are normal. No consolidation or pleural effusion. IMPRESSION: No acute findings. Echocardiogram Date: 06/12/24 EF > 70%. No RWMA. No LVH. No significant valvular disease. Stress Test Date: 09/24/19 Type: exercise Normal exercise echo without evidence of inducible ischemia at workload achieved and 96% MPHR. 5.8 METS. Poor exercise tolerance. EF 55-60%. No RWMA at rest. No significant valvular disease (although valves not well visualized).
--- NOTE | 2024-11-16 20:21 | History & Physical Report ---
Date of Service November 16, 2024 Assessment & Plan (1) Osteoarthritis of right glenohumeral joint: Plan: Right shoulder end-stage glenohumeral osteoarthritis with some level of rotator cuff and biceps tendinopathy. Patient has excellent function with regard to range of motion but has chronic pain related to the arthritis. Plan is to proceed with a anatomic total shoulder replacement with a stemless implant and repair of the rotator cuff with Regeneten bio inductive type I collagen implant and perform a biceps tenodesis. (2) Tendinopathy of right rotator cuff: (3) Biceps tendinopathy of right upper extremity: History of Present Illness Chief Complaint: Chronic right shoulder pain Primary Care Provider: Katia Kirkpatrick, 64-year-old female with chronic right shoulder pain. There is grade 4 end-stage osteoarthritis glenohumeral joint with some level of rotator cuff tendinopathy but no full-thickness rotator cuff tear. Patient denies headaches, sweats, fevers, chills, double vision, blurred vision, cough, sore throat, dysphagia, chest pain, sob, wheezing, n/v/d/c, numbness, tingling, fatigue, urinary symptoms... ROS positive for pulmonary embolism ,sleep apnea, CPAP, anxiety and depression. Allergies Allergy/AdvReac Type Severity Reaction Status Date / Time sulfamethoxazole Allergy Mild Hives Verified 11/09/24 13:29 [From Bactrim] trimethoprim [From Bactrim] Allergy Mild Hives Verified 11/09/24 13:29 Home Medications Medication Instructions Recorded Confirmed Type warfarin 6 mg tablet 6 mg PO HS 12/02/19 11/09/24 History cetirizine 10 mg tablet (Zyrtec) 10 mg PO DAILY PRN allergies 04/14/20 11/09/24 History cholecalciferol (vitamin D3) 50 100 mcg (2 x 50 mcg (2,000 unit)) 12/20/22 11/09/24 Rx mcg (2,000 unit) capsule PO DAILY #30 caps CPAP Machine #1 ea 08/12/23 11/09/24 Rx CPAP Supplies #1 ea 08/12/23 11/09/24 Rx mecobalamin (vitamin B12) 1,000 1,000 mcg PO DAILY 08/13/23 11/09/24 History mcg chewable tablet buspirone 15 mg tablet 15 mg PO BID #180 tabs 07/03/24 11/09/24 Rx furosemide 40 mg tablet 40 mg PO QAM #90 tabs 07/03/24 11/09/24 Rx lisinopril 40 mg tablet 40 mg PO QAM #90 tabs 09/01/24 11/09/24 Rx enoxaparin 150 mg/mL subcutaneous 150 mg subcut Q12H 7 days #14 mL 11/11/24 Rx syringe venlafaxine 150 mg See Rx Instructions .Route 11/13/24 Rx capsule,extended release 24 hr .COMPLEX #90 caps Past Med/Surg History Problem List (Updated 11/16/24 @ 20:20 by Seven Andersen MD) Biceps tendinopathy of right upper extremity Tendinopathy of right rotator cuff Osteoarthritis of right glenohumeral joint Encounter for pre-operative examination Multilevel degenerative disc disease SS-B antibody positive Hypothyroidism Postmenopausal status Esophageal reflux Allergic rhinitis Metabolic syndrome Pre-diabetes Hyperlipidemia COLIN (obstructive sleep apnea) Morbid obesity with BMI of 50.0-59.9, adult Breast cancer s/p left mastectomy (04/2019), chemo Depression Generalized anxiety disorder HTN (hypertension) with goal to be determined History of DVT (deep vein thrombosis) 2014 (unprovoked)- on warfarin History of pulmonary embolus (PE) 2014 (unprovoked)- on warfarin Insomnia Left knee DJD Medical History Prediabetes Per records, patient denies A1C 06/08/24 5.7% Metabolic syndrome Hyperlipidemia Generalized anxiety disorder Depression Esophageal reflux Allergic rhinitis HTN (hypertension) History of hypothyroidism Previous synthroid discontinued Euthyroid off meds (TSH 3.401 06/2024) HX: breast cancer s/p left mastectomy (04/2019), states no chemo - was on hormone jocelyn x 5 years- ended 04/2024 [facility] discharged patient Hx pulmonary embolism DVT > PE 2014 (unprovoked) Taking Warfarin No issues since Hx of deep venous thrombosis DVT > PE 2014 (unprovoked) Taking Warfarin No issues since Morbid obesity History of atrial fibrillation Single episode (5+ years ago) History of asthma Per remote records, patient denies official diagnosis, indicates that previous inhaler rx was for "sinus issues" Obstructive sleep apnea of adult CPAP (compliant) Surgical History History of root canal procedure 2020 Hx of breast implant (09/2019) Left Hx of left mastectomy (04/2019) Denies limb restriction Fitting and adjustment of gastric lap band 2004 H/O shoulder surgery Right H/O foot surgery (2002) Right (heel spur removal) H/O oral surgery Teeth extraction Hx of laparoscopic gastric banding 15+ years ago History of knee replacement, total Left (2016) Right (2019) Hx of colonoscopy Family History Father Arthritis Congestive heart failure Hypertension Lung disease Myocardial infarction Rheumatoid arthritis Diabetes Heart disease Mother Depression Lung cancer Lymphedema Hypertension Cancer Family/Other Diabetes Social History Smoking Status: Never smoker Second Hand Exposure: No; Do You Dip or Chew Tobacco: No; Hx Alcohol Use: Yes Alcohol type: wine Hx Substance Use: No Preferred Language: Japanese Communication Ability: Effective Visual Impairment: No Limitations Landscape And Yardwork Laborer Required: No Beliefs That Will Affect Care: None marital status: Current Living Situation: Alone 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 Feels Safe at Home: Yes Childhood Exposure to Second-Hand Smoke: Yes caffeine: Yes Dental Care, Regularly: Yes Physical Activity Frequency: 3-4 Times per Week Seatbelt Use: always Sunscreen Use: No Assistive Devices: CPAP, Denture - Upper, Denture - Lower and Glasses Review of Systems All systems reviewed & are unremarkable except as noted in HPI & below Physical Exam Constitutional: WD/WN, vitals as above Respiratory: normal respiratory effort; no respiratory distress Cardiovascular: Rate/Rhythm: regular rate and regular rhythm Musculoskeletal: Right shoulder with arthroscopic scars glenohumeral crepitation pain with range of motion 180 degrees flexion 80 degrees external rotation internal rotation to S1. Normal strength. Normal circulation sensorimotor exam. Skin: no rashes, warm and dry Neurologic: normal touch/pain/proprioception Psychiatric: A+Ox3, euthymic affect Results & Data Diagnostic Findings [id number] glenohumeral joint on MRI and plain films. There is some level of rotator cuff tendinopathy with no full-thickness rotator cuff tear. Some level of biceps tendinopathy.
[~2024-11-18 08:20] MED LIST changes: -ACETAMINOPHEN 500 MG TAB PO SCH; -BUPIVACAINE/EPINEPHRINE 0.25% 1:200,000 30 ML VIAL ONE; -CEFAZOLIN 3000MG 72.5 ML IV SCH; -CeleBREX 200 MG CAP PO SCH; -FAMOTIDINE 20 MG TAB PO SCH; -GABAPENTIN 600 MG DOSE PO SCH; -LIDOCAINE HCL 2% 2 ML VIAL/AMP(20MG/ML) INFIL ONE; -LR 500ML BOLUS, THEN 15ML/HR IV SCH; -METOCLOPRAMIDE HCL 10 MG TABLET PO SCH; -MIDAZOLAM HCL 1 MG/ML 2ML VIAL ONE; -ONDANSETRON INJ 2 MG/ML 2 ML VIAL ONE; -PROPOFOL IV EMULSION 10 MG/ML 20 ML VIAL IV ONE; -ROPIVACAINE 0.5% HCL/PF 150 MG, BUPIVACAINE 0.5% MPF 30 ML, EPINEPHrine 30MG/30ML (OR U... INFIL SCH; -dexAMETHasone 4 MG TAB PO SCH; -fentaNYL citrate 100 MCG/2 ML VIAL ONE
[2024-11-18] MEDS ORDERED: LIDOCAINE 2% 2 ML VIAL/AMP(20MG/ML) INFIL ONE (08:30)
[2024-11-18] MEDS ORDERED: ONDANSETRON INJ 2 MG/ML 2 ML VIAL ONE (08:30)
[2024-11-18] MEDS ORDERED: ROCURONIUM BROMIDE 10 MG/ML 5 ML VIAL IV ONE ×2 (08:30→12:23)
[2024-11-18] MEDS ORDERED: MIDAZOLAM HCL 1 MG/ML 2ML VIAL ONE (08:31)
[2024-11-18] MEDS ORDERED: SUGAMMADEX SODIUM 200 MG/2 ML VIAL IV ONE (08:31)
[2024-11-18] MEDS: ACETAMINOPHEN 500 MG TAB PO SCH ×2 (09:03→22:31)
[2024-11-18] MEDS: FAMOTIDINE 20 MG TAB PO SCH (09:03)
[2024-11-18] MEDS: dexAMETHasone**PF** 10 MG/ML VIAL IV SCH (09:04)
[2024-11-18] MEDS: LR 15ML/HR IV SCH (09:04)
[2024-11-18] MEDS: CeleBREX 200 MG CAP PO SCH (09:04)
[2024-11-18] MEDS: GABAPENTIN 300 MG CAP PO SCH (09:04)
[2024-11-18] MEDS: METOCLOPRAMIDE HCL 10 MG TABLET PO SCH (09:08)
[2024-11-18] MEDS: LR 60ML/HR IV SCH (09:08)
[2024-11-18 09:29] LABS: INR 1.0 (0.9-1.1); Partial Thromboplastin Time 38 Seconds (21-31); Prothrombin Time 11.1 Seconds (9.0-12.0)
[2024-11-18] MEDS ORDERED: HYDROmorphone INJ 1 MG/ML SYRINGE IV PRN (09:33)
[2024-11-18] MEDS ORDERED: PROMETHAZINE HCL 6.25 MG in SODIUM CHLORIDE 0.9% 50 ML IV PRN (09:33)
[2024-11-18] MEDS ORDERED: ONDANSETRON INJ 2 MG/ML 2 ML VIAL IV PRN ×2 (09:33→16:12)
[2024-11-18] MEDS ORDERED: ATROPINE SULFATE 0.1 MG/ML 10ML SYR IV PRN (09:33)
[2024-11-18] MEDS: TRANEXAMIC ACID 1,000 MG **IV Pre-op IV SCH (10:39)
--- NOTE | 2024-11-18 10:48 | History & Physical Bridge Note ---
Date of Service November 18, 2024 History & Physical Bridge Note I have examined the patient, reviewed the History & Physical and in the interval since the performance of the History & Physical I have noted the following changes of clinical significance: no changes noted
[2024-11-18] MEDS: ceFAZolin 3000MG 3,000 MG/72.5 ML BAG IV SCH (10:56)
[2024-11-18] MEDS ORDERED: DEXAMETHASONE SOD INJ 4 MG/ML VIAL ONE (11:45)
[2024-11-18] MEDS ORDERED: HYDROmorphone INJ 2 MG/ML SYR/VIAL ONE (12:42)
[2024-11-18] MEDS: EpINEphrine HCL INJ 1 MG/ML 1ML SYRINGE IR ONE (13:36)
--- NOTE | 2024-11-18 14:20 | Post Operative Brief Note ---
Immediate Post Op Note Date of Surgery November 18, 2024 Pre & Post Diagnosis Preoperative diagnosis: Right shoulder end-stage glenohumeral osteoarthritis with rotator cuff tendinopathy and biceps tendinopathy. Morbid obesity BMI 52.9 Postoperative diagnosis: Right shoulder end-stage glenohumeral osteoarthritis with rotator cuff tendinopathy and biceps tendinopathy intra-articular biceps rupture. Morbid obesity BMI 52.9 Operation Date: 11/18/24 10:10 <No data on this case meets the specified criteria> I identified the patient and participated in the time-out.: Yes Procedure Right shoulder anatomic total shoulder replacement with rotator cuff repair with Regeneten bio inductive type I collagen implant and biceps tenodesis and increased difficulty morbid obesity BMI 52.9 Operation Date: 11/18/24 10:10 <No data on this case meets the specified criteria> Surgeon Seven Andersen MD Try Out Person [place] JEAN Estimated Blood Loss 200 Findings Consistent with Post-Op Diagnosis Specimens Humeral head cut Drains Hemovac Drain Anesthesia Type General Regional Complications none Disposition Disposition: Recovery Room Overlapping Procedure I was immediately available: during the entire case.
--- NOTE | 2024-11-18 14:49 | Operative Report ---
Post Operative Report Pre & Post Diagnosis Operation Date: 11/18/24 10:10 Pre-Op Diagnosis: Right Shoulder Degenerative Joint Disease, Osteoarthritis of right glenohumeral joint, tendinopathy of right rotator cuff, biceps tendinopathy of right upper extremity, morbid obesity BMI 52.9 Post-Op Diagnosis: Right Shoulder Degenerative Joint Disease, Osteoarthritis of right glenohumeral joint, tendinopathy of right rotator cuff, biceps tendinopathy of right upper extremity, intra-articular biceps rupture, morbid obesity BMI 52.9 I identified the patient and participated in the time-out.: Yes Procedure Operation Date: 11/18/24 10:10 Actual Procedures p Right anatomic stemless total Shoulder Arthroplasty, Rotator Cuff Repair with Regeneten bio inductive type I collagen implant, Biceps Tenodesis(Right), increased difficulty morbid obesity BMI 52.9- Seven Andersen MD Surgeon Seven Andersen MD Drafting Supervisor [place] JEAN Estimated Blood Loss 200 Findings Consistent with Post-Op Diagnosis Specimens Humeral head cut Drains 2 Hemovac Anesthesia Type General Regional Complications none Disposition Disposition: Recovery Room Indications 64-year-old female with chronic progressive osteoarthritis of the right shoulder glenohumeral joint. MRI demonstrates biceps tendinopathy rotator cuff tendinopathy without any high-grade or complete rotator cuff tear and advanced grade 4 glenohumeral osteoarthritis. Patient has history of prior shoulder arthroscopy. Description of Procedure Patient was taken to the operating room anesthetized under regional block and general anesthetic. Patient was placed in a 40 degree beach chair position with a foam headrest protective eyewear all extremities padded teds and SCDs were placed. A towel roll was placed on the medial border of the right scapula. The arm was examined and range of motion demonstrated some decreased external rotation with the arm at the side to about 60 degrees and showed good forward flexion to 170 degrees and [id number] crepitation. She did have a very obese arm as her BMI was 52.9.. An anterior deltopectoral approach was performed. Longitudinal incision was made in deltopectoral interval. This was longer than typical due to the obesity. Skin incised sharply and deeper than typical subcutaneous flaps elevated. The deltopectoral interval was identified. The cephalic vein demonstrated normal-appearing vein. The cephalic vein was retracted laterally with the deltoid. The upper centimeter of the pectoralis was released for inferior exposure. Biceps tendon demonstrated at the level of pectoralis tendon the biceps tendon was still noted to be intact but somewhat lax. Appeared to be possibly be some proximal rupture to that level.. The biceps was tensioned to normal tension and tenodesed to the pectoralis tendon using #2 FiberWire [id number] and incorporating a whipstitch suture technique.. Proximal biceps was resected. Rotator cuff findings demonstrated some tendinopathy most notable in the supraspinatus with slight thinning but no evidence of any high-grade partial tears or full-thickness tears with reasonably good rotator cuff tissue. The circumflex vessels were tied off with silk ties and divided laterally. The subscapularis muscle fibers were split at the level of circumflex vessels and released off the inferior capsule with a Kitner elevator and then a blunt Hohmann retractor was placed protect the axillary nerve. The rotator interval was released down to the level of the glenoid. The subscapularis tendon was taken down with a transtendinous incision leaving a cuff of tissue for repair on the lesser tuberosity. The humeral head findings demonstrated eburnated bone grade 4 arthritic change with rimming osteophytes. The inferior osteophytes were resected using an artist chisel and rongeur. The inferior capsule was released off the bone subperiosteally using a Sosa elevator. A #1 Vicryl traction suture was placed into the free edge of the subscapularis tendon. A Fukuda retractor was placed into the joint. Capsule was released with Rivers scissors down to the glenoid and off of the anterior glenoid to the rotator interval which was released to meet the capsular release creating a 360 degree release of subscapularis tendon. An anterior Bankart retractor was placed. The glenoid and labral findings demonstrated that there was grade 4 arthritic wear on the glenoid and entire glenoid being involved with anterior and posterior osteophytes. The labrum was degenerative and the intra-articular biceps was absent. The undersurface of the rotator cuff demonstrated some tendinopathy of the supraspinatus without any high-grade partial tears. The glenoid labrum was resected. An anterior-inferior and posterior inferior capsule release was performed electrocautery on bone and a Sosa elevator. The axillary nerve was protected inferiorly with the blunt Hohmann. Attention was taken back to the humeral head. Humeral head was exposed with extension and external rotation. The oscillating saw was used to make an anatomic neck cut removing the articular surface. All the circumferent ial remaining osteophytes were trimmed with a rongeur. The humerus was sized for a 2 nucleus and a 50 by 19 simplicity humeral head. The bone was assessed with a thumb press test and there was solid cancellous bone. The guide for the nucleus was placed centrally and then the guidepin was placed. The surface reamer was used followed by the central drill for the nucleus. The trial nucleus was inserted and the cut protector was placed. The humerus was retracted posterior to the glenoid . A Tornier retractor ,Hohmann retractors as well as an anterior Bankart retractor were placed. The glenoid was fully exposed. The anterior and posterior osteophytes were resected with a rongeur. The Tornier Cortiloc glenoid was used. The medium 30 radius size was chosen. Any remaining articular cartilage on the glenoid was curetted off so we had full exposed bone. The wear pattern was essentially concentric type a. The central drill hole was made followed by the reamer for the glenoid followed by widening the central hole for the central post. The guide for the peripheral drill holes was placed and the drill holes were made. The trial reduction performed with stable fixation. The trial removed and the glenoid copiously irrigated with pulsed saline solution. The drill holes were packed with epinephrine-soaked tampons. The Palacos G cement was vacuum mixed. The Tornier Cortiloc medium 30 radius glenoid component was then cemented in position after drying the glenoid after removal of the tampons. Fixation was excellent. All excess cement was cleared. When the cement cured we moved onto removing the cut protector doing a trial reduction with a 50 x 19 millimeter humeral head trial. Stability was assessed and was stable. Soft tissue tension on the subscapularis tendon was satisfactory. The trial components of the humeral head were removed and the 3 drill holes were made in the harder bone in the biceps groove area and transosseous #5 FiberWire sutures were placed. Then the humeral cut surface was reexposed with retractors and after irrigation the #2 nucleus was impacted leaving it slightly proud until the 50 x 19 simplicity humeral head was placed into the nucleus and then both were impacted into the humerus with a tight press-fit. The humerus was reduced to the glenoid. The stability was verified. The joint was irrigated with Xperience solution. The subscapularis tendon was repaired with #5 FiberWire sutures placed in Valdez-Eligio suture technique. Lateral row fixation was performed with interrupted [id number] #2 FiberWire sutures and rotator interval was closed with #2 FiberWire sutures. A medium Regeneten bio inductive type I collagen implant was laid over the edge of the upper subscapularis repair and over the supraspinatus and anterior infraspinatus tendon. It was sutured with 2-0 Vicryl sutures with good fixation. Range of motion demonstrated 160 degrees forward flexion 70 degrees internal and external rotation and 100 degrees abduction without tension on repair. The pectoralis was repaired with [id number] #2 FiberWire sutures placing sutures back through the biceps tendon to reinforce the tenodesis. 2 Hemovac drains were placed. The deltopectoral interval was repaired with [id number] #1 Vicryl sutures. The subcutaneous tissue was repaired with 2-0 Vicryl sutures and the skin was closed with mikey. Sterile Silverlon dressing was applied and a sling immobilizer. The patient tolerated the procedure well. There was increase of difficulty due to her substantial obesity which increased difficulty with exposure and many aspects of the procedure increasing length of procedure by 45 minutes to an hour. [place] JEAN acted as assistant director of public works throughout the procedure. He functioned as assistant director of public works assisting in all aspects of the procedure including patient positioning prepping draping, arm positioning, soft tissue retraction,, instrument management, subcutaneous and skin closure and postop care the patient as well. I attest to the content of the Intraoperative Record and any orders documented therein. Any exceptions are noted below.
--- NOTE | 2024-11-18 15:02 | XRay Report ---
XR shoulder RT min 2V routine CLINICAL HISTORY: Post shoulder surgery COMPARISON: None FINDINGS: Right shoulder prosthesis shows no hardware complication. Postoperative drain is present. There is expected soft tissue gas. Skin mikey are present. IMPRESSION: Unremarkable postoperative exam. ACT 112: Negative or not required by law. Electronically signed by: Lakhwinder Linares M.D. 11/18/2024 3:01 PM
--- NOTE | 2024-11-18 15:29 | Anesthesiology Progress Note ---
Date of Service November 18, 2024 Anesthesia Post Procedure Vital Signs Vital Signs: Temp Pulse Pulse Resp BP Pulse Ox O2 Del Method 11/18/24 15:15 84 20 114/63 97 Oxymask 11/18/24 15:05 87 16 151/69 H 97 Oxymask 11/18/24 14:55 91 H 17 157/85 H 95 Oxymask 11/18/24 14:47 36 C L 98 H 12 144/78 H 97 Oxymask 11/18/24 08:49 37.1 C 84 20 156/74 H 97 Room Air O2 Flow Rate 11/18/24 15:15 4 11/18/24 15:05 6 11/18/24 14:55 6 11/18/24 14:47 10 11/18/24 08:49 Transfer of Care Handoff Completed per policy Notes Mental Status: alert / awake / arousable and participated in evaluation Patient Amnestic to Procedure: Yes Nausea / Vomiting: improving with treatment Pain: adequately controlled and improving with treatment Airway Patency, RR, SpO2: stable & adequate BP & HR: stable & adequate Hydration State: stable & adequate Anesthetic Complications: no major complications apparent and Pt Satisfied with anesthetic care Notes: Pt interscalene block is functioning well. Arm in sling
[2024-11-18] MEDS ORDERED: ALUMINUM/MAGNESIUM SUSP 30 ML UDC PO PRN (16:12)
[2024-11-18] MEDS ORDERED: diphenhydrAMINE Capsule 25 MG CAP PO PRN (16:12)
[2024-11-18] MEDS ORDERED: METOCLOPRAMIDE HCL INJ 5 MG/ML 2 ML VIAL IV PRN (16:12)
[2024-11-18] MEDS ORDERED: HYDROmorphone INJ 0.5 MG/0.5 ML SYR IV PRN (16:12)
[2024-11-18] MEDS ORDERED: MAGNESIUM HYDROXIDE SUSP 30 ML UDC PO PRN (16:12)
[2024-11-18] MEDS ORDERED: NALOXONE HCL 0.4 MG/1 ML VIAL/CARP IV PRN (16:12)
[2024-11-18] MEDS ORDERED: CETIRIZINE HCL 10 MG TABLET PO PRN (16:12)
[2024-11-18] MEDS: BUPIVACAINE LIPOSOME 1.3% 133 MG/10 ML VIAL ONE (16:21)
[2024-11-18] MEDS: SODIUM CHLORIDE 0.9% 1,000 ML IV SCH (16:41)
--- NOTE | 2024-11-18 17:22 | Hospitalist Consultation ---
Date of Consultation November 18, 2024 Assessment & Plan (1) Status post total shoulder arthroplasty: (2) COLIN (obstructive sleep apnea): (3) History of pulmonary embolus (PE): (4) History of DVT (deep vein thrombosis): (5) Pre-diabetes: (6) HTN (hypertension): Plan This patient is a 64-year-old female who underwent a right total shoulder arthroplasty with Dr. Andersen on 11/18. We were consulted for medical management #S/p right total shoulder arthroplasty Perioperative antibiotics, pain control, fluids, and DVT PPx per the primary team Patient reports no pain postoperatively Agree with a.m. CBC, PT/INR, and BMP, we will follow #Prediabetes Last A1c at 5.7% on 07/05/2024 Patient is not currently on any medications at home; diet controlled T2DM diet on patient Added on BSG ACHS + hypoglycemia medications Will plan to adjust regimen as needed AM A1c #Depression | anxiety Continue BuSpar BID Continue venlafaxine #History of DVT/PE Warfarin was held preoperatively; Lovenox last taken the evening prior to surgery Will plan to restart warfarin on the evening of 11/19 and bridge with Lovenox (see most recent PCP note for details on plan) Trend PT/INR #HTN Normotensive postoperatively However, will plan to hold lisinopril and Lasix the morning of 11/19 pending a.m. BP #COLIN Added on CPAP HS Thank you for allowing to us to participate in the care of this patient, please reach out any questions or concerns; we will continue to follow. Supervising Physician Co-Signing Physician Notes MIRANDA Supervision Note: I personally saw and examined the patient. I verified all tobar points and agree with MIRANDA Del Valle with the following exceptions and/or additions: S-this patient is a 64-year-old female with a history of obesity, OA, DVT/PE, COLIN on CPAP, HTN, prediabetes, anxiety, who is here admitted postoperatively after a right total shoulder arthroplasty on 11/18. She is doing very well. Denies chest pains or shortness of breath, no nausea. She has no pain in the shoulder as her nerve block is still intact. History and ROS otherwise reviewed as above O- Vitals reviewed Gen: [AAOx3, NAD, obese] HEENT: [anicteric sclerae, EOMI] CV: [RRR no mgr nl S1S2] Pulm: [CTAB no wcr] Ext: [Right shoulder with dressing in place clean dry and intact with Hemovac drain with bloody drainage, arm in sling, legs no edema] Skin: [no rashes, warm/dry] Neuro: [full strength throughout except not moving right upper extremity due to shoulder surgery, can move right fingers] A/H-89-vxnm-old female with history as above here postoperatively from a right TSA. Doing very well - Hold home Lasix and lisinopril in the morning until reassess BPs and renal function - Recommend only giving 1 L of maintenance fluids overnight as she typically is on diuretics to prevent volume overload-changed the fluid order - Recommend starting Lovenox bridging and warfarin on the evening of 11/19-she will check her INR in 3 days after that History of Present Illness Reason for Consultation: Medical management Requesting Physician: Seven Andersen MD Attending Physician: Seven Andersen MD History of Present Illness Mrs. Perez is a 64-year-old female with PMH of breast cancer, depression, anxiety, HTN, DVT/PE, COLIN, morbid obesity with BMI >50, prediabetes, esophageal reflux, and hypothyroidism. She presented for a right total shoulder arthroplasty with Dr. Andersen on 11/18. Per review of operative report, EBL was listed as 200 cc, 2 Hemovac drains were placed, general regional anesthesia was used, and there were no reported intraoperative complications. Per review of patient's vitals postoperatively, her blood pressure was mildly elevated postop, but has since normalized. Patient was successfully weaned off of supplemental oxygen and is 92% on RA at time of consult. Patient reports that she is having 0 out of 10 pain in her right shoulder at this time. She reports that the nerve block has been working wonderfully. She has been eating and drinking well. She is also been able to get up and use the bathroom without feeling dizzy or lightheaded on her feet. Patient does use a CPAP at night, and reports that they brought one of her her following a procedure. Patient denies any recent sick contacts. She reports that she took her venlafaxine and BuSpar this morning, but these were the only medication she was instructed to take. Additionally, her Coumadin has been on hold in preparation for the surgery, and she reports she last took the Lovenox bridge last night. Normally, she takes her Coumadin in the evenings, and has been on the same dosage of 6 mg for several months ROS: Patient denies fever, chills, night sweats, dizziness/lightheadedness when standing, chest pain, SOB, cough, abdominal pain, N/V/D, changes in urinary bowel habits, burning with nation, blood in the urine or stool, numbness or tingling going down the right arm, or pain in the right shoulder. Allergies Allergy/AdvReac Type Severity Reaction Status Date / Time sulfamethoxazole Allergy Mild Hives Verified 11/18/24 08:31 [From Bactrim] trimethoprim [From Bactrim] Allergy Mild Hives Verified 11/18/24 08:31 Home Medications Medication Instructions Recorded Confirmed Type warfarin 6 mg tablet 6 mg PO HS 12/02/19 11/18/24 History cetirizine 10 mg tablet (Zyrtec) 10 mg PO DAILY PRN allergies 04/14/20 11/18/24 History cholecalciferol (vitamin D3) 50 100 mcg (2 x 50 mcg (2,000 unit)) 12/20/22 11/18/24 Rx mcg (2,000 unit) capsule PO DAILY #30 caps CPAP Machine #1 ea 08/12/23 11/09/24 Rx CPAP Supplies #1 ea 08/12/23 11/09/24 Rx mecobalamin (vitamin B12) 1,000 1,000 mcg PO DAILY 08/13/23 11/18/24 History mcg chewable tablet buspirone 15 mg tablet 15 mg PO BID #180 tabs 07/03/24 11/18/24 Rx furosemide 40 mg tablet 40 mg PO QAM #90 tabs 07/03/24 11/18/24 Rx lisinopril 40 mg tablet 40 mg PO QAM #90 tabs 09/01/24 11/18/24 Rx venlafaxine 150 mg See Rx Instructions .Route 11/13/24 11/18/24 Rx capsule,extended release 24 hr .COMPLEX #90 caps acetaminophen 500 mg tablet 1,000 mg (2 x 500 mg) PO Q8H #90 11/18/24 Rx (Tylenol Extra Strength) tabs cefadroxil 500 mg capsule 500 mg PO Q12H #28 caps 11/18/24 Rx oxycodone 5 mg tablet 5 mg PO Q4H PRN pain #30 tabs 11/18/24 Rx Patient History Medical History Prediabetes Per records, patient denies A1C 06/08/24 5.7% Metabolic syndrome Hyperlipidemia Generalized anxiety disorder Depression Esophageal reflux Allergic rhinitis HTN (hypertension) History of hypothyroidism Previous synthroid discontinued Euthyroid off meds (TSH 3.401 06/2024) HX: breast cancer s/p left mastectomy (04/2019), states no chemo - was on hormone jocelyn x 5 years- ended 04/2024 [facility] discharged patient Hx pulmonary embolism DVT > PE 2014 (unprovoked) Taking Warfarin No issues since Hx of deep venous thrombosis DVT > PE 2014 (unprovoked) Taking Warfarin No issues since Morbid obesity History of atrial fibrillation Single episode (5+ years ago) History of asthma Per remote records, patient denies official diagnosis, indicates that previous inhaler rx was for "sinus issues" Obstructive sleep apnea of adult CPAP (compliant) Surgical History History of root canal procedure 2020 Hx of breast implant (09/2019) Left Hx of left mastectomy (04/2019) Denies limb restriction Fitting and adjustment of gastric lap band 2004 H/O shoulder surgery Right H/O foot surgery (2002) Right (heel spur removal) H/O oral surgery Teeth extraction Hx of laparoscopic gastric banding 15+ years ago History of knee replacement, total Left (2016) Right (2019) Hx of colonoscopy Family History Father Arthritis Congestive heart failure Hypertension Lung disease Myocardial infarction Rheumatoid arthritis Diabetes Heart disease Mother Depression Lung cancer Lymphedema Hypertension Cancer Family/Other Diabetes Social History Smoking Status: Never smoker Second Hand Exposure: No; Do You Dip or Chew Tobacco: No; Tobacco Cessation Education Requested by Patient: No Hx Alcohol Use: Yes Alcohol type: wine Hx Substance Use: No Preferred Language: Greek Communication Ability: Effective Visual Impairment: No Limitations Rural Health Consultant Required: No Beliefs That Will Affect Care: None marital status: Current Living Situation: Alone 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 Other Information That Helps Us Care for You: No Feels Safe at Home: Yes Safety Concerns: Feels Safe At This Time Childhood Exposure to Second-Hand Smoke: Yes caffeine: Yes Dental Care, Regularly: Yes Physical Activity Frequency: 3-4 Times per Week Seatbelt Use: always Sunscreen Use: No Assistive Devices: Bedside Commode, Cane and Walker Assistive Devices Comment: partials Review of Systems Review of Systems: See HPI above Physical Exam Physical Exam: General: no acute distress; pleasant affect; family members at bedside; non- toxic appearing; cooperative; SpO2 92% on RA HEENT: normocephalic, atraumatic; no scleral icterus; PERRLA; vision and hearing grossly intact Neck: supple; no lymphadenopathy; trachea midline Right shoulder: Hemovac drain in place; surgical site is NTP Skin: warm, dry without signs of tenting; no cyanosis; no rashes, bruising, lesions, or erythema noted CV: chest wall NTP; RRR; pulses intact and symmetric at radial, DP, and PT Lungs: no acute respiratory distress; symmetrical chest wall expansion; clear breath sounds across all lung rodriguez w/o adventitious sounds; no wheezing ABD: Soft, NTP; BS present; no rebound/guarding; no distention MSK: no tics or fasciculations; no edema noted in the LEs b/l, nonerythematous; patient demonstrates ability to wiggle toes; 5/5 order processor strength bilateral Neuro: A&Ox3; normal mood and affect; fluent speech; no focal deficits; patient reports that sensation is still mildly diminished in the right hand when compared to the left Results & Data Results & Data Vital Signs (Past 12 Hours) Vital Signs Temp Pulse Pulse Resp BP BP Pulse Ox 11/18/24 17:07 37 C 94 H 20 132/75 97 11/18/24 16:42 91 H 18 126/79 96 11/18/24 16:25 11/18/24 16:12 37 C 93 H 16 118/79 92 11/18/24 15:40 84 19 118/65 96 11/18/24 15:25 36.8 C 86 19 115/67 97 11/18/24 15:15 84 20 114/63 97 11/18/24 15:05 87 16 151/69 H 97 11/18/24 14:55 91 H 17 157/85 H 95 11/18/24 14:47 36 C L 98 H 12 144/78 H 97 11/18/24 08:49 37.1 C 84 20 156/74 H 97 O2 Del Method O2 Flow Rate 11/18/24 17:07 Nasal Cannula 2 11/18/24 16:42 Nasal Cannula 2 11/18/24 16:25 Nasal Cannula 2 11/18/24 16:12 Room Air 11/18/24 15:40 Nasal Cannula 2 11/18/24 15:25 Nasal Cannula 2 11/18/24 15:15 Oxymask 4 11/18/24 15:05 Oxymask 6 11/18/24 14:55 Oxymask 6 11/18/24 14:47 Oxymask 10 11/18/24 08:49 Room Air Laboratory Results Abnormal lab results 11/18/24 Range/Units 08:29 APTT 38 H (21-31) Seconds Diagnostic Findings Shoulder X-Ray 11/18/24 14:44 XR shoulder RT min 2V routine CLINICAL HISTORY: Post shoulder surgery COMPARISON: None FINDINGS: Right shoulder prosthesis shows no hardware complication. Postoperative drain is present. There is expected soft tissue gas. Skin mikey are present. IMPRESSION: Unremarkable postoperative exam. ACT 112: Negative or not required by law. Electronically signed by: Lakhwinder Linares M.D. 11/18/2024 3:01 PM PG Care Time/CCT Total # of Minutes Spent Total Time Spent with Patient: Total time spent is greater than 50% in coordination of care (as documented) at patient's floor/unit and/or counseling patient: C[place] [address] IN/OBS CONSULT LVL 3,45M Patient Type Established Medical Decision Making Moderate Complexity Diagnoses Status post total shoulder arthroplasty Z96.619 COLIN (obstructive sleep apnea) G47.33 History of pulmonary embolus (PE) Z86.711 History of DVT (deep vein thrombosis) Z86.718 Pre-diabetes R73.03 HTN (hypertension) I10
[2024-11-18] MEDS ORDERED: CARBOHYDRATES FOR HYPOGLYCEMIA PO PRN (17:27)
[2024-11-18] MEDS ORDERED: DEXTROSE 50% 50 ML SYRINGE IV PRN (17:27)
[2024-11-18] MEDS ORDERED: GLUCAGON FOR INJ 1 MG VIAL SQ PRN (17:27)
[2024-11-18] MEDS ORDERED: GLUCOSE 40% GEL 15 GM TUBE PO PRN (17:27)
[2024-11-18] MEDS ORDERED: GLUCOSE 10 TAB/TUBE PO PRN (17:27)
[2024-11-18] MEDS: SENNA 8.6 MG TAB PO SCH (20:14)
[2024-11-18] MEDS: busPIRone 15 MG TAB PO SCH (20:14)
[2024-11-18] MEDS: DOCUSATE SODIUM 100 MG CAP PO SCH (20:14)
[2024-11-18] MEDS: TRANEXAMIC ACID / 0.7% NACL 1,000 MG/100 ML BAG IV SCH (20:15)
[2024-11-18] MEDS ORDERED: KETOROLAC TROMETHAMINE 15 MG/ML VIAL IV PRN (21:00)
[2024-11-18] MEDS ORDERED: WARFARIN SOD 6 MG TAB PO SCH (21:00)
[2024-11-19 07:37] VITALS: PULSE 84; RESP 16; TEMP 98.6; O2SAT 94
--- NOTE | 2024-11-19 08:15 | Orthopedic Progress Note ---
Date of Service November 19, 2024 Assessment & Plan (1) Osteoarthritis of right glenohumeral joint: Plan: Postop day 1 anatomic total shoulder replacement Regeneten repair rotator cuff biceps tenodesis increased difficulty morbid obesity. Discussed surgical proce krunal. Patient's drain can be discontinued today prior to discharge and discharged home and she has physical therapy starting a week from today. She can do home exercises until physical therapy starts. Patient has a sling for support. Patient has 2-week follow-up approximately. Right shoulder end-stage glenohumeral osteoarthritis with some level of rotator cuff and biceps tendinopathy. Patient has excellent function with regard to range of motion but has chronic pain related to the arthritis. Plan is to proceed with a anatomic total shoulder replacement with a stemless implant and repair of the rotator cuff with Regeneten bio inductive type I collagen implant and perform a biceps tenodesis. (2) Tendinopathy of right rotator cuff: (3) Biceps tendinopathy of right upper extremity: Admission and Anticipated Discharge Date Admission Date: November 18, 2024 Subjective No pain but still under the effects of nerve block Review of Systems Review of Systems: Feels well, noncontributory Physical Exam Musculoskeletal: Has hand movement still cannot flex elbow still has some residual numbness radial and normal circulation, dressing dry and intact. Results & Data Vital Signs (Past 12 Hours) Vital Signs Temp Pulse Resp BP Pulse Ox O2 Del Method 11/19/24 07:36 37.0 C 84 16 109/70 94 Room Air 11/19/24 04:08 36.6 C 83 18 114/76 96 Room Air 11/18/24 22:29 36.4 C L 90 20 130/76 92 Room Air, CPAP Diagnostic Findings Well aligned anatomic total shoulder replacement
[2024-11-19] MEDS: MULTIVITAMIN TAB PO SCH (08:47)
[2024-11-19] MEDS: CYANOCOBALAMIN (B-12) 500 MCG TABLET PO SCH (08:48)
[2024-11-19] MEDS: dexAMETHasone 10 MG in SYRINGE 0 ML IV SCH (08:48)
[2024-11-19] MEDS: VENLAFAXINE HCL XR 150 MG CAPXR PO SCH (08:48)
[2024-11-19] MEDS: CHOLECALCIFEROL 25 MCG (1000 UNITS) TAB PO SCH (08:48)
[2024-11-19] MEDS ORDERED: FUROSEMIDE 40 MG TAB PO SCH (09:00)
--- NOTE | 2024-11-19 09:14 | Hospitalist Consultation ---
Date of Consultation November 19, 2024 Assessment & Plan (1) Status post total shoulder arthroplasty: (2) COLIN (obstructive sleep apnea): (3) History of pulmonary embolus (PE): (4) History of DVT (deep vein thrombosis): (5) Pre-diabetes: (6) HTN (hypertension): (7) Acute blood loss anemia: Plan This patient is a 64-year-old female who underwent a right total shoulder arthroplasty with Dr. Andersen on 11/18. We were consulted for medical management #S/p right total shoulder arthroplasty Perioperative antibiotics, pain control, fluids, and DVT PPx per the primary team Patient reports no pain postoperatively Agree with a.m. CBC, PT/INR, and BMP, we will follow #Acute blood loss anemia Hb 10.6 postoperatively Expected in the setting of surgery (EBL listed as 200 cc) + dilution from IVF No active bleeding appreciated on physical exam Recommend outpatient CBC for follow-up #Prediabetes Last A1c at 5.7% on 11/19/2024 Patient is not currently on any medications at home; diet controlled T2DM diet on patient Added on BSG ACHS + hypoglycemia medications Will plan to adjust regimen as needed #Depression | anxiety Continue BuSpar BID Continue venlafaxine #History of DVT/PE Warfarin was held preoperatively; Lovenox last taken the evening prior to surgery Will plan to restart warfarin on the evening of 11/19 and bridge with Lovenox (see most recent PCP note for full details on plan) INR 1.0 on the morning of 11/19 Patient plans to have INR drawn on Thursday 11/23 outpatient #HTN Normotensive postoperatively However, will plan to hold lisinopril and Lasix the morning of 11/19 pending a.m. BP #COLIN Added on CPAP HS Thank you for allowing to us to participate in the care of this patient, please reach out any questions or concerns; we will plan to sign off at this time. Supervising Physician Co-Signing Physician Notes Attending Attestation - Chart reviewed, care plan d/w MIRANDA Del Valle. I agree w/ the tobar components of his documentation. Agree with anticoagulation plan including lovenox bridge while awaiting INR to become therapeutic from coumadin. Derrick Hoffman MD History of Present Illness Reason for Consultation: Medical management Requesting Physician: Seven Andersen MD Attending Physician: Seven Andersen MD History of Present Illness Mrs. Perez reports she is doing well this morning. She difficulty sleeping last night due to her right shoulder, and she reports she normally sleeps on her back at home. However, she reports 0 out of 10 pain in her right shoulder this morning. Patient has had difficulty taking deep breaths this morning, but was told by orthopedics that this might be secondary to the nerve block; she has been using her incentive spirometry as instructed. She is also been coughing up phlegm this morning. Other than that, she reports she feels well. No setbacks overnight. She has been ambulating to the bathroom without dizziness or difficulty. Overall, she feels like she would be ready to go home today. Discussed patient's plan for warfarin/Lovenox bridge, and patient seems to have a clear understanding of the plan at this time. She also reports that she is planned to have a PT/INR drawn on Thursday 11/23. ROS Patient endorses chest tightness, and productive cough. Patient denies fevers overnight, headache, dizziness/lightheadedness when standing or ambulating, chest pain, chest palpitations, SOB, abdominal pain, N/V/D, changes in urinary bowel habits, or numbness or tingling going down the right arm. Allergies Allergy/AdvReac Type Severity Reaction Status Date / Time sulfamethoxazole Allergy Mild Hives Verified 11/18/24 08:31 [From Bactrim] trimethoprim [From Bactrim] Allergy Mild Hives Verified 11/18/24 08:31 Home Medications Medication Instructions Recorded Confirmed Type warfarin 6 mg tablet 6 mg PO HS 12/02/19 11/18/24 History cetirizine 10 mg tablet (Zyrtec) 10 mg PO DAILY PRN allergies 04/14/20 11/18/24 History cholecalciferol (vitamin D3) 50 100 mcg (2 x 50 mcg (2,000 unit)) 12/20/22 11/18/24 Rx mcg (2,000 unit) capsule PO DAILY #30 caps CPAP Machine #1 ea 08/12/23 11/09/24 Rx CPAP Supplies #1 ea 08/12/23 11/09/24 Rx mecobalamin (vitamin B12) 1,000 1,000 mcg PO DAILY 08/13/23 11/18/24 History mcg chewable tablet buspirone 15 mg tablet 15 mg PO BID #180 tabs 07/03/24 11/18/24 Rx furosemide 40 mg tablet 40 mg PO QAM #90 tabs 07/03/24 11/18/24 Rx lisinopril 40 mg tablet 40 mg PO QAM #90 tabs 09/01/24 11/18/24 Rx venlafaxine 150 mg See Rx Instructions .Route 11/13/24 11/18/24 Rx capsule,extended release 24 hr .COMPLEX #90 caps acetaminophen 500 mg tablet 1,000 mg (2 x 500 mg) PO Q8H #90 11/18/24 Rx (Tylenol Extra Strength) tabs cefadroxil 500 mg capsule 500 mg PO Q12H #28 caps 11/18/24 Rx oxycodone 5 mg tablet 5 mg PO Q4H PRN pain #30 tabs 11/18/24 Rx Patient History Medical History Prediabetes Per records, patient denies A1C 06/08/24 5.7% Metabolic syndrome Hyperlipidemia Generalized anxiety disorder Depression Esophageal reflux Allergic rhinitis HTN (hypertension) History of hypothyroidism Previous synthroid discontinued Euthyroid off meds (TSH 3.401 06/2024) HX: breast cancer s/p left mastectomy (04/2019), states no chemo - was on hormone jocelyn x 5 years- ended 04/2024 [facility] discharged patient Hx pulmonary embolism DVT > PE 2014 (unprovoked) Taking Warfarin No issues since Hx of deep venous thrombosis DVT > PE 2014 (unprovoked) Taking Warfarin No issues since Morbid obesity History of atrial fibrillation Single episode (5+ years ago) History of asthma Per remote records, patient denies official diagnosis, indicates that previous inhaler rx was for "sinus issues" Obstructive sleep apnea of adult CPAP (compliant) Surgical History History of root canal procedure 2020 Hx of breast implant (09/2019) Left Hx of left mastectomy (04/2019) Denies limb restriction Fitting and adjustment of gastric lap band 2004 H/O shoulder surgery Right H/O foot surgery (2002) Right (heel spur removal) H/O oral surgery Teeth extraction Hx of laparoscopic gastric banding 15+ years ago History of knee replacement, total Left (2016) Right (2019) Hx of colonoscopy Family History Father Arthritis Congestive heart failure Hypertension Lung disease Myocardial infarction Rheumatoid arthritis Diabetes Heart disease Mother Depression Lung cancer Lymphedema Hypertension Cancer Family/Other Diabetes Social History Smoking Status: Never smoker Second Hand Exposure: No; Do You Dip or Chew Tobacco: No; Hx Alcohol Use: Yes Alcohol type: wine Hx Substance Use: No Preferred Language: Lithuanian Communication Ability: Effective Visual Impairment: No Limitations Marble Finisher Required: No Beliefs That Will Affect Care: Spiritual marital status: Current Living Situation: Alone 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 Feels Safe at Home: Yes Childhood Exposure to Second-Hand Smoke: Yes caffeine: Yes Dental Care, Regularly: Yes Physical Activity Frequency: 3-4 Times per Week Seatbelt Use: always Sunscreen Use: No Assistive Devices: Bedside Commode, Cane and Walker Review of Systems Review of Systems: See HPI above Physical Exam Physical Exam: General: no acute distress; pleasant affect; sitting upright in her chair eating breakfast; non-toxic appearing; cooperative; SpO2 94% on RA HEENT: normocephalic, atraumatic; no scleral icterus; PERRLA; vision and hearing grossly intact Neck: supple; no lymphadenopathy; trachea midline Right shoulder: Hemovac drain in place; surgical site is NTP Skin: warm, dry without signs of tenting; no cyanosis; no rashes, bruising, lesions, or erythema noted CV: chest wall NTP; RRR; pulses intact and symmetric at radial, DP, and PT Lungs: no acute respiratory distress; symmetrical chest wall expansion; clear breath sounds across all lung rodriguez w/o adventitious sounds; no wheezing ABD: Soft, NTP; BS present; no rebound/guarding; no distention MSK: no tics or fasciculations; no edema noted in the LEs b/l, nonerythematous; patient demonstrates ability to wiggle toes; 5/5 high lift driver strength bilateral Neuro: A&Ox3; normal mood and affect; fluent speech; no focal deficits; patient reports that sensation is still mildly diminished in the right hand when compared to the left Results & Data Results & Data Vital Signs (Past 12 Hours) Vital Signs Temp Pulse Resp BP Pulse Ox O2 Del Method 11/19/24 07:36 37.0 C 84 16 109/70 94 Room Air 11/19/24 04:08 36.6 C 83 18 114/76 96 Room Air 11/18/24 22:29 36.4 C L 90 20 130/76 92 Room Air, CPAP PG Care Time/CCT Total # of Minutes Spent Total Time Spent with Patient: Total time spent is greater than 50% in coordination of care (as documented) at patient's floor/unit and/or counseling patient: Coding [place] [address] IN/OBS CONSULT LVL 2,35M Patient Type Established Medical Decision Making Low Complexity Diagnoses Status post total shoulder arthroplasty Z96.619 COLIN (obstructive sleep apnea) G47.33 History of pulmonary embolus (PE) Z86.711 History of DVT (deep vein thrombosis) Z86.718 Pre-diabetes R73.03 HTN (hypertension) I10 Acute blood loss anemia D62
[2024-11-19 09:52] VITALS: BP 118/65
[2024-11-19 11:13] LABS: Hematocrit (blood only) 33.1 % (37.0-47.0); Hemoglobin 10.6 g/dl (12.0-16.0); Immature Granulocytes # (auto) 0.06 K/uL (0.01-0.20); Immature Granulocytes % (auto) 0.6 %; Mean Corpuscular Hemoglobin 28.2 pg (25.0-34.0); Mean Corpuscular Volume 88.0 fL (80.0-100.0); Platelet Count 233 K/uL (130-400); RDW Standard Deviation 49.1 fL (36.4-46.3); Red Blood Count 3.76 M/uL (4.20-5.40); White Blood Count 9.92 K/ul (4.8-10.8)
[2024-11-19 11:25] LABS: Anion Gap 8.0 (3-11); Blood Urea Nitrogen 20.0 mg/dl (6-23); Calcium 8.1 mg/dl (8.6-10.3); Carbon Dioxide 24.0 mmol/L (21-32); Chloride 107.0 mmol/L (98-107); Creatinine Clr Calc Pharmacy 69.6 ml/min; Glucose 121.0 mg/dl (70-99(Fasting)); Potassium 4.0 mmol/L (3.5-5.1); Sodium 139.0 mmol/L (136-145)
[2024-11-19 11:33] LABS: INR 1.0 (0.9-1.1); Prothrombin Time 10.8 Seconds (9.0-12.0)
[2024-11-19 12:26] LABS: Hemoglobin A1C 5.7 % (4.5-5.6)
[2024-11-19] MEDS ORDERED: WARFARIN SOD 6 MG TAB PO SCH (21:00)
== END 2024-11-19 11:45 | disposition home or self-care (01) ==
LOC: ASU 08:20 → 3W 08:20